=== PATIENT | female | born 1965 | race Caucasian/White ===

== ENCOUNTER → 2018-01-29 11:20 | Outpatient (CLI) | payer OTHER, SELFPAY ==
[2018-01-29 14:40] LABS: AST(SGOT) 19 U/L (15-37); Alanine Aminotransfer ALT/SGPT 32 U/L (13-56); Cholesterol 149 mg/dL (200); High Density Lipoprotein 80 mg/dL; T4 Total, Thyroxin 15.3 ug/dL (4.8-13.9); Thyroid Stim Hormone (TSH) 0.35 uIU/mL (0.358-3.74); Triglycerides 50 mg/dL; Very Low Density Lipoprotein 10 mg/dL (5-40)
== END ==
PROVIDERS: Family Provider Family Medicine; PCP Family Medicine; Visit Provider Family Medicine
DX: E03.9 Hypothyroidism, unspecified (principal); E78.5 Hyperlipidemia, unspecified
CPT/HCPCS: 36415; 80061; 84436; 84443; 84450; 84460

== ENCOUNTER → 2018-01-29 12:06 | Outpatient (CLI) | payer OTHER, SELFPAY ==
[2018-01-31 12:10] LABS: HPV Reflexed? NOT INDICATED
== END ==
PROVIDERS: Family Provider Family Medicine; PCP Family Medicine; Visit Provider Family Medicine
DX: Z12.4 Encounter for screening for malignant neoplasm of cervix (principal)
CPT/HCPCS: 88175; G0145

== ENCOUNTER → 2019-01-24 09:33 | Outpatient (CLI) | payer OTHER, SELFPAY ==
--- NOTE | 2019-01-24 09:36 | BI_ITS ---
MAMMOGRAPHY - BILATERAL SCREENING 3-D TOMOSYNTHESIS REASON FOR EXAM: Female, 53 years old. Bilateral Screening 3-D tomosynthesis PERTINENT HISTORY: Paternal grandmother with breast cancer in her 70s. No symptoms. No problems.. TECHNIQUE: 2-D mammograms and 3-D Tomosynthesis of the breast (s) were performed. CAD was performed. COMPARISON: December 26, 2015. FINDINGS: The breast composition is heterogeneously dense that can obscure small breast masses. There is new, incompletely imaged, flame-shaped asymmetric density within the very deep right lower inner breast. The visualized this region measures approximately 1.9 cm in maximum dimension. This finding is centered approximately 11.5 cm from the nipple base. There is no involvement/superimposed border-forming nodule or mass. There is no associated architectural distortion. The remainder of bilateral breasts appear stable and unremarkable. There are no suspicious clustered microcalcifications. There are no secondary signs of malignancy. BI/SCREENING MAMM (CAD), BILAT IMPRESSION: New asymmetry within the very deep right lower inner breast as described above. Recommend further evaluation with sonographic characterization. ASSESSMENT CATEGORY: BIRADS Category 0: Incomplete. Need additional imaging evaluation as above. A letter regarding these results will be sent to the patient by the facility within 30 days. FOLLOW UP RECOMMENDATION: Ultrasound Recommended. (I) Approximately 10% of breast cancers are not detected by mammography. A normal mammogram should not delay biopsy of a clinically suspicious abnormality. Electronically Signed: Evaristo Sanchez MD at 10:39 EDT , Service support ,
== END ==
PROVIDERS: Family Provider Family Medicine; PCP Family Medicine; Referring Provider Family Medicine; Visit Provider Family Medicine
DX: Z12.31 Encounter for screening mammogram for malignant neoplasm of breast (principal)
CPT/HCPCS: 77063; 77067

== ENCOUNTER → 2019-01-28 15:29 | Outpatient (CLI) | payer OTHER, SELFPAY ==
--- NOTE | 2019-01-28 15:31 | US_ITS ---
STUDY: ULTRASOUND BREAST - RIGHT REASON FOR EXAM: Female, 53 years old. Abnormal screening mammogram. TECHNIQUE: Axial and longitudinal images of the RIGHT breast were performed with a high resolution ultrasound transducer. COMPARISON: Comparison is made with prior mammogram dated January 24, 2019. FINDINGS: RIGHT Breast: The mammographic abnormality corresponds to a 1.6 cm x 1.9 cm by 1.1 cm irregular inhomogeneous hypoechoic nodule at the 7:00 position of the breast at 4 cm from nipple. A biopsy is recommended. US/Breast Limited Unilateral IMPRESSION: 1.6 cm x 1.9 cm x 1.1 cm irregular hypoechoic solid nodule at the 4:00 position of the breast at 7 cm from nipple. A biopsy is recommended. ASSESSMENT CATEGORY: BIRADS Category 4: Suspicious - Biopsy Should Be Considered. A letter regarding these results will be sent to the patient by the facility within 30 days. Electronically Signed: Horacio Stallworth, at 9:42 EDT , Service support ,
== END ==
PROVIDERS: Family Provider Family Medicine; PCP Family Medicine; Referring Provider Family Medicine; Visit Provider Family Medicine
DX: R92.8 Other abnormal and inconclusive findings on diagnostic imaging of breast (principal)
CPT/HCPCS: 76642

== ENCOUNTER → 2019-02-03 15:55 | Outpatient (CLI) | payer OTHER, SELFPAY ==
[2019-02-02 10:38] VITALS: BMI 23.2
--- NOTE | 2019-02-03 | IMM_PTH ---
PATIENT: MARLY LINO LOC: [facility] U#:[id number] AGE/SX: 60/F ROOM: RE02/03/[address]: Dr. Mer Camara MD : 1965 BED: DIS: SPEC #: [id number] RECD: 02/06/19 10:18 STATUS: ENEIDA REQ #: [id number] PRINCE: 02/03/19 00:[address]: Mer Camara DEPT: IMMUNOHISTOCHEMISTRY RECD BY: Beena Chavarria ENTERED: 02/06/19 10:19 SP TYPE: IMMUNO OTHR DR: Dr. Rosie Burciaga MD Tissues: Right breast, NOS Procedures: CALPONIN-1 (add) CK5-6 (add) CK8 (add) E-CAD (add) HER2 ANASTASIA (add) KI-67 (add) P53 (add) WA (add) P40 (add) ER (initial) PHYSICIAN & INSTITUTION [address] [address] SPECIMEN INFORMATION: Tissue Source: Right breast Clinical Info: Right breast mass Specimen Number: [id number] CPT code: 03027, 38082 x6, 02433 x3 METHODOLOGY: Deparaffinized sections of prefer/formalin-fixed tissue or PAP/DQ stained slides are incubated with monoclonal/polyclonal antibodies/oligonucleotide probes. Localization is made via biotin free immunoperoxidase method. Appropriate controls are performed and reacted as expected. Results on target cell population are indicated in the following table: RESULTS: ANTIBODY / CLONE RESULT P53 (DO-7) negative Ki-67 (30-9) positive, moderate CK8 (71zzogZ19) positive CK5-6 (D5 & 1684) negative Calponin-1 (YN061Z) negative P40 (BC28) negative E-Cad (ECH-6) positive MORPHOMETRIC ANALYSIS ER (clone 6F11) 0% WA (clone 16/1E2) 0% Her-2Neu (clone CB11) 3+ The prognostic test for HER2 is performed on formalin-fixed paraffin embedded tissue. A 3+ (positive) staining pattern is defined as intense, homogeneous, complete, circumferential membranous staining in >10% of contiguous tumor cells. A similar weak (2+) staining pattern is interpreted as equivocal. JEREMIAS follow-up testing is recommended for all equivocal cases. Positivity/negativity for ER/WA is reported if > or < 1% of the tumor cells are immuno- reactive, respectively. The ASCO/CAP criteria is used for scoring. Reference: Journal of Clinical Oncology, 2013; 31:5643-5717 & 2010; 16:4968-1302. Duration of fixation: 27.5 Hrs; Sample Adequate: Yes. These assays have not been validated on decalcified tissues. Results should be interpreted with caution given the likelihood of false negativity on decalcified specimens. These tests were developed and their performance characteristics determined by [facility]. They may not have been cleared or approved by the U.S. Food and Drug Administration. The FDA has determined that such clearance or approval is not necessary. INTERPRETATION: Right breast, ultrasound-guided biopsy: Invasive ductal carcinoma, nuclear grade 2/3. Negative for estrogen receptors (unfavorable prognostic indicator). Negative for progesterone receptors (unfavorable prognostic indicator). Positive for overexpression of [id number]. AM:nabor 02/09/19
--- NOTE | 2019-02-03 15:55 | BRBX_PTH ---
PATIENT: MARLY LINO LOC: [facility] U#:[id number] AGE/SX: 60/F ROOM: RE02/03/[address]: Dr. Mer Camara MD : 1965 BED: DIS: SPEC #: [id number] RECD: 02/04/19 16:13 STATUS: ENEIDA REQ #: [id number] PRINCE: 02/03/19 15:[address]: Mer Camara DEPT: SURGICAL PATHOLOGY RECD BY: Jamshid Rice ENTERED: 02/05/19 10:50 SP TYPE: BREAST BX OTHR DR: Dr. Rosie Burciaga MD Tissues: Right breast, NOS Procedures: Surgery Specimen Level IV HEADER OPERATION: Ultrasound-guided right breast biopsy PRE-OP DIAGNOSIS: Right breast mass TISSUE SUBMITTED: Right breast ISCHEMIC TIME: 1 minute FIXATION TIME: 27.5 hours MICROSCOPIC DIAGNOSIS Right breast mass, ultrasound-guided core biopsy: Invasive ductal carcinoma with the following characteristics: Maximal length - 8 mm Nuclear grade - 2/3 AM:nabor 02/06/19 COMMENT ER/WV/Xsr0gqc studies are being performed on sections of tumor and the results from this study will be reported separately ([id number]). MICROSCOPIC DESCRIPTION Slides are reviewed. GROSS DESCRIPTION Received in fixative is one container labeled with the patient's name and designated right breast biopsy. The specimen consists of multiple irregular fragments of yellow-monahan soft tissue that in aggregate measure 1 x 0.2 x 0.1 cm. The specimen is totally submitted in one cassette. / AM:nabor 02/05/19 TC:0 CPT: 73619
== END ==
PROVIDERS: Family Provider Family Medicine; PCP Family Medicine; Referring Provider Surgery; Visit Provider Surgery
DX: N63.10 Unspecified lump in the right breast, unspecified quadrant (principal)
CPT/HCPCS: 88305; 88341; 88342

== ENCOUNTER → 2019-02-26 | Outpatient (CLI) | payer OTHER, SELFPAY ==
[2019-02-19 13:32] VITALS: BMI 23.2
--- NOTE | 2019-02-26 09:33 | MRI_ITS ---
STUDY: BILATERAL BREAST MR WITHOUT AND WITH CONTRAST REASON FOR EXAM: Female, 53 years old. New diagnosed right breast cancer. TECHNIQUE: Multi-sequence multi-echo imaging of both breasts was performed with a dedicated breast coil. T1-weighted and T2-weighted images were performed before the administration of contrast. T1-weighted images were also performed after the administration of 14 IV Dotarem without complications. COMPARISON: Screening mammogram dated January 24, 2019, right unilateral diagnostic mammogram dated January 28, 2019 and right breast ultrasound dated January 28, 2019 FINDINGS: RIGHT BREAST: The breast tissue is fatty with minimal background enhancement. In the lower inner quadrant of the right breast approximately 6.7 cm behind the nipple and 2.2 cm below the nipple, there is an irregular heterogeneously enhancing mass measuring 3.5 cm x 2 cm x 1.5 cm. There is a tissue clip marker in the central portion of the mass. This mass corresponds to the mass seen on ultrasound and the mass that was biopsied February 04, 2019. LEFT BREAST: The breast tissue is fatty with minimal background enhancement. There are no abnormal enhancing masses or areas of non-mass enhancement in the left breast. There are no enlarged or abnormal lymph nodes. There is no abnormality in the visualized regions of the chest or liver. MRI/Breast Bilateral W/O and W IMPRESSION: 3.5 cm x 2 cm x 1.5 cm heterogeneously enhancing mass in the right breast corresponding to the mass biopsied February 04, 2019. This represents the index lesion. No other abnormality is present. CATEGORY: BIRADS Category 6: Known Biopsy-Proven Malignancy - Appropriate Action Should Be Taken. A letter regarding these results will be sent to the patient by the facility within 30 days. Electronically Signed: Esvin Wise MD at 16:48 EDT , Service support ,
== END | disposition home or self-care (01) ==
PROVIDERS: Family Provider Family Medicine; PCP Family Medicine; Referring Provider Surgery; Visit Provider Surgery
DX: C50.911 Malignant neoplasm of unspecified site of right female breast (principal)
CPT/HCPCS: 77049; A9575; A4216; C8908

== ENCOUNTER → 2019-03-05 14:58 | Outpatient (CLI) | payer OTHER, SELFPAY ==
[2019-03-02 10:16] VITALS: BMI 23.7
--- NOTE | 2019-03-05 14:59 | ECHOCSONC_ITS ---
Reason For Study: Pre infusion high risk meds Procedure This was a 2D Doppler, Color Flow transthoracic echocardiogram. Myocardial strain analysis was performed in this exam to aid in the assessment of cardiac function. Exam performed in department. Left Ventricle Normal LV size. The estimated ejection fraction is 45-50 %. Stage 1 diastolic dysfunction. Hypokinesis of the lateral wall and septum. Right Ventricle Normal RV size. Normal systolic function. Atria Normal left atrium. Normal right atrium. No doppler evidence for ASD. Mitral Valve There is no mitral valve stenosis. Trivial mitral valve insufficiency. Tricuspid Valve There is no tricuspid stenosis. Trivial tricuspid valve insufficiency. Pulmonary artery systolic pressure is 25 mmHg. Aortic Valve Trisinus/trileaflet aortic valve. There is no aortic stenosis. No aortic valve insufficiency. Pulmonic Valve There is no pulmonic valvular stenosis. No pulmonic valve insufficiency. Great Vessels Normal aortic root. Pericardium/Pleural No pericardial effusion. MMode/2D Measurements & Calculations LVIDd: 5.0 cm IVSd: 0.96 cm Ao root diam: 3.2 cm LVIDs: 3.7 cm LVPWd: 0.96 cm RVDd: 2.5 cm FS: 26.5 % LAV(MOD-bp): 42.2 ml LA A4 area: 13.4 cm2 LA dimension(2D): 3.1 cm LAV(MOD-bp) Indexed: 24.2 ml/m2 LAV(MOD-sp2): 42.2 ml LAV(MOD-sp4): 34.8 ml RA A4 area: 9.7 cm2 Time Measurements MV dec time: 0.19 sec Doppler Measurements & Calculations MV E max ky: 60.5 cm/sec Lat Peak E' Ky: 7.9 cm/sec Med Peak E' Ky: 4.6 cm/sec MV A max ky: 79.3 cm/sec E/E' lat: 7.6 E/E' med: 13.2 MV E/A: 0.76 Ao V2 max: 115.1 cm/sec LV V1 max: 80.8 cm/sec PA V2 max: 61.4 cm/sec Ao max P.3 mmHg LV V1 max P.6 mmHg TR max ky: 224.1 cm/sec TR max P.1 mmHg Interpretation Summary Stage 1 diastolic dysfunction. Hypokinesis of the lateral wall and septum Pulmonary artery systolic pressure is 25 mmHg. The estimated ejection fraction is 45-50 %. Trivial mitral valve insufficiency. Ordering Physician: Wei Bravo Referring Physician: Rosie Burciaga Performed By: Caitlin Malcolm, RENATO, RVT
== END ==
PROVIDERS: Family Provider Family Medicine; PCP Family Medicine; Referring Provider Internal Medicine Hematology & Oncology; Visit Provider Internal Medicine Hematology & Oncology
DX: Z01.818 Encounter for other preprocedural examination (principal); C50.911 Malignant neoplasm of unspecified site of right female breast
CPT/HCPCS: 0399T; 93306

== ENCOUNTER 2019-03-16 08:09 | Day surgery (SDC) | payer OTHER, SELFPAY ==
--- NOTE | 2019-02-20 09:36 | HP_ITS ---
Intake Vital Signs 02/19/19 Body Mass Index (BMI) 23.2 02/19/19 Height 5 ft 6 in 02/19/19 Weight: 143 lb 02/19/19 Body Mass Index (BMI) 23.1 02/19/19 Blood Pressure 137/82 H 02/19/19 Blood Pressure Location Rt brachial 02/19/19 Blood Pressure Position Sitting 02/19/19 Respiratory Rate 14 02/19/19 Pulse Rate 90 02/19/19 Pulse Source Monitor 02/19/19 Temperature 98.2 F 02/19/19 Temperature Source Oral 02/19/19 Pulse Ox 100 02/19/19 Oxygen Delivery Method room air Intake Visit Reasons: f/u breast biopsy/discuss surgery Mophead Trimmer And Wrapper Required: No Is patient in pain?: No Allergies No Known Allergies Allergy (Verified 02/19/19 13:32) Medications atorvastatin 10 mg tablet 10 mg PO DAILY 02/02/19 [History Confirmed 02/19/19] levothyroxine 112 mcg tablet 112 mcg PO DAILY 02/02/19 [History Confirmed 02/19/19] PFSH Medical History Abnormal mammogram of right breast (Acute) Abnormal ultrasound of breast (Acute) Thyroid disease (Acute) Surgical History Hx of right breast biopsy (Acute) Family History Mother Hypertension High cholesterol Skin cancer Thyroid disorder Father Heart disease High cholesterol Hypertension Thyroid disorder Sister High cholesterol Social History Smoking Status: Never smoker second hand exposure: No alcohol intake: current alcohol intake frequency: a few times a month substance use type: does not use caffeine: Yes (occasionally) what type of physical activity do you participate in: walking, weight training frequency: 3-4 times per week HPI HPI HPI: MARLY LINO, is a 53 F who presents to the office today for HPI HPI Surgical H&P: Yes HPI: MARLY LINO, is a 53 F who presents to the office today for discussion of right breast biopsy results. Patient's biopsy showed invasive ductal carcinoma. ER MS negative, HER-2/meliton positive. Patient denies much bruising after the biopsy and denies any pain at the site. Patient's grandmother may have had breast cancer in her 70s but she did get have colon cancer before the breast cancer, otherwise no family history. Exam Const General: cooperative, comfortable, no acute distress Chest Other: Right breast: 2 x 1 cm mobile mass medially at 4:00 about 7 cm from the nipple, biopsy site incision healing well, no ecchymosis or signs of infection. No right axillary lymphadenopathy on exam. Resp Effort & Inspection: normal respiratory effort Cardio Rate: regular rate Assessment & Plan Problems 1. Invasive ductal carcinoma of right breast C50.911 2. 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 Encounter for adjustment or management of vascular access device Z45.2 Plan Discussed pathology report with the patient as well as her tumor marker status. Discussed with patient that due to her ER MS and negative and HER-2 positive markers would recommend patient see oncology for neoadjuvant therapy as there is a newer neoadjuvant therapy for HER-2 positive breast cancers. We will also plan on patient getting an MRI of the breast which also evaluate patient's axilla on exam I do not feel any lymphadenopathy. Discussed with patient that if there is anything seen in her axilla would need further ultrasound of the biopsy prior to beginning treatment. Also discussed with patient plan for genetic testing as it may help guide her with her possible surgical options in the future once no adjuvant treatment has been completed. Did also briefly discussed patient options for surgery including breast conserving therapy, mastectomy, mastectomy with reconstruction, bilateral mastectomy did discuss that there is no survival benefit over the breast conserving therapy versus mastectomy. And also discussed that bilateral mastectomies would not offer survival benefit unless she had a genetic mutation and would double the risk of complications. We will plan to discuss further treatment therapies or options once she has completed neoadjuvant therapy. A lymph node biopsy would be necessary before treatment if there is any abnormal nodes on imaging. And we would plan for at least a sentinel node possibly actually no dissection if needed for definitive treatment. Also discussed with patient the procedure of her left possible right IJ port placement for her chemotherapy. I have discussed above with the patient- Port-a-Cath placement. Patient has been counseled as to the risks/benefits of the procedure. I have explained the risks of the surgery, including but not limited to: infection, bleeding, injury to any blood vessels/nerves, injury to lungs (such as pneumothorax or hemothorax and need for chest tube), not having any access, nonfunctioning of port due to thrombosis, infection of port, etc. the patient understands and agrees to proceed. I have answered all the patient's questions to the patient?s satisfaction and the patient has no further questions. Greater than 50% of direct patient contact was spent in counseling or coordination of care. I spent 40 minutes counseling the patient and coordinating care. Mer Camara M.D. Pager: [phone] [facility] [address] [place] [address], [address] [place] [id number] Office: [phone] Orders Orders: Breast Bilateral W/O and W 02/19/19 C50.911 Referrals: Genetic Referral C50.911 Oncology C50.911 Plan Detail Follow Up Patient will see oncology and get her breast MRI and will see and schedule for port placement. 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
[2019-03-02 10:16] VITALS: BMI 23.7
[2019-03-16] VITALS (7 sets, daily range): BP systolic 110–162; BP diastolic 70–96; PULSE 74–95; RESP 16–18; TEMP 36.9; O2SAT 94–98; BMI 23.9
[2019-03-16] MEDS: Bupivacaine Mpf 0.5% 30 ML VIAL (10:23)
[2019-03-16] MEDS: Cefazolin 2 GM in 0.9% Normal Saline 100 ML IV (10:23)
--- NOTE | 2019-03-16 11:08 | RAD_ITS ---
STUDY: X-RAY CHEST REASON FOR EXAM: Female, 53 years old. Port placement verification. TECHNIQUE: Single frontal view of the chest. COMPARISON: None. FINDINGS: Left internal jugular catheter has been placed with tip projected into the mid-SVC. The lungs are mildly hyperexpanded. There is no demonstrated pleural abnormality. Normal size heart. Normal mediastinum and polo. Normal visualized pulmonary arteries. Normal visualized aortic arch and descending thoracic aorta. Normal visualized thoracic spine. Normal visualized ribs, clavicles, and shoulders. There is no demonstrated abnormality of the visualized soft tissue structures of the upper abdomen. RAD/CXR for Line Placement IMPRESSION: Placement of left internal jugular catheter without complications. Electronically Signed: Esvin Wise MD at 11:53 EDT , Service support ,
--- NOTE | 2019-03-16 11:08 | PCM.OPRPT ---
Report of Operation Date of Procedure: 03/16/19 Pre-Operative Diagnosis: z45.2, right breast cancer Post-Operative Diagnosis: Same Surgery/Procedure Performed:: 1. Insertion of left IJ port. 2. Use of ultrasound. 3. Use of fluoroscopy Type of Anesthesia:: MAC/Supplemental Anesthesiologist: Oskar Wynne Special Medications: Ancef 2 g IV x1 Specimen's removed: None Estimated Blood Loss (mL): < 10 cc Fluids Replaced: 500 cc Description of Procedure: After informed consent was given, the patient was brought to the operating room and placed in the supine position. Appropriate time out protocol was followed. He was then given IV conscious sedation for anesthesia. The patient's bilateral upper chest and neck were then prepped with a surgical skin preparation and sterile surgical drapes were placed. After proper landmarks were ascertained, the skin at the upper left chest area was then infiltrated with 1:1 mixture of 1% lidocaine with epinephrine and 0.5% maricaine. A needle trocar was then inserted into the left internal jugular vein with ultrasound guidance-multiple vessels were viewed with u/s and the left IJ was chosen-- and there was good aspiration of venous blood. A wire was then threaded into the needle trocar and this was visualized under fluoroscopy to ensure that the wire was in the superior vena cava. Once this was done, then the needle trocar was removed. A small skin tricia was made with an 11 blade knife at the wire entrance site. The dilator with the introducer sheath attached was then placed over the wire into the left internal jugular vein via the Seldinger technique and this was visualized under fluoroscopy; however it did not appear to turn down towards the heart. Though wire was changed out for angle wide wire which was inserted under fluoroscopy and did enter the superior vena cava without any issues. The dilator and sheath were in proper position as visualized by fluoroscopy. A subcutaneous pocket was then created caudad to the catheter insertion site. A transverse skin incision was made after the skin and subcutaneous tissues were infiltrated with local anesthetic. Blunt dissection was then used to create a space large enough for placement of the subcutaneous port. The catheter was then tunneled into the subcutaneous pocket. The wire and dilator were then removed. The catheter was then threaded into the introducer sheath and was positioned with its tip at the junction of the superior vena cava and the right atrium as visualized under fluoroscopy. The excess catheter was transected. The catheter was then attached to the subcutaneous port using manufacturers guidelines. The catheter was flushed with a heparin saline mixture prior to placement. Hemostasis was carefully controlled with electrocautery. The port was sutured to the subcutaneous fascia using 2-0 Vicryl suture at two sites. The port was then placed in the subcutaneous pocket and the sutures were ligated. The incision were reapproximated with interrupted subdermal 3-0 vicryl sutures. The skin was reapproximated with 3-0 nylon suture in a interrupted fashion. Steristrips were used for reinforcement of the skin closure at IJ insertion site and a sterile opsite dressings were applied. The patient tolerated the procedure well. Implants Used: Bard PowerPort isp M.R.I. 6Fr Lot [id number], ref [id number] Grafts/Implants Used: [employer] PowerPort isp M.R.I. 6Fr Lot [id number], ref [id number] - Complications none
--- NOTE | 2019-03-16 11:13 | DCINST_ITS ---
Discharge Diet: No Restrictions May shower in (days): 1 - Keep port site clean and dry for 5 days okay to keep original dressing on for 2 to 3 days. Lifting Restrictions: No lifting greater than 15 pounds with the left arm x1 week Call your doctor if your incision/area has: Continuous Slow Oozing, Sudden Increased Bleeding, Increased Pain/ Swelling, Increased Redness, Foul Smelling Discharge, Swelling at the incision site Call your doctor if you observe: Fever of 101 or Higher Remove Dressing in (days):: 1 - Okay to remove the neck OpSite tomorrow or later today. Okay to keep the port site OpSite on for 2 to 3 days. Keep the port site clean dry for 5 days. Allergies/Adverse Reactions: Allergies No Known Allergies Allergy (Verified 03/16/19 08:36) Medications to take at Discharge atorvastatin 10 mg tablet 10 mg PO DAILY 02/02/19 levothyroxine 112 mcg tablet 112 mcg PO DAILY 02/02/19 Primary Care Physician: Rosie Burciaga MD [Primary Care Provider] - Test Results: Test results from this visit will be discussed in further detail at your follow- up appointment, if applicable. Please Follow Up With: Mer Camara MD - After 5 PM and on the weekends call [phone] with any concerns. When: Call the office for follow-up appointment in 10 days for suture removal. Proposed Discharge Date: 03/16/19
== END 2019-03-16 12:04 | disposition home or self-care (01) ==
LOC: SDC 08:13 → AC 08:14
PROVIDERS: Family Provider Family Medicine; PCP Family Medicine; Referring Provider Surgery; Visit Provider Surgery
PROC: (CPT 36561; principal; 2019-03-16 10:00)
DX: Z45.2 Encounter for adjustment and management of vascular access device (principal); C50.911 Malignant neoplasm of unspecified site of right female breast; Z17.1 Estrogen receptor negative status [ER-]
CPT/HCPCS: 36561; 71045; 77001; J7120; C1769; J2405

== ENCOUNTER → 2019-03-17 10:49 | Outpatient (CLI) | payer OTHER, SELFPAY ==
[2019-03-02 10:16] VITALS: BMI 23.7
[2019-03-16 08:46] VITALS: BMI 23.9
--- NOTE | 2019-03-17 10:56 | NM_ITS ---
CLINICAL: 53-year-old female presenting for evaluation of presystemic-cytotoxic therapy, resting left ventricular myocardial systolic function. RESTING RADIONUCLIDE VENTRICULOGRAPHY COMPARISON: Resting echocardiography report 03/05/2019 FINDINGS: Following the intravenous administration of 25.8 mCi of 99m Tc Ultratag RBCs, the resting labeled blood pool radionuclide ventriculogram reveals: 1. The left ventricular ejection fraction was calculated to be 43.0 % by equilibrium technique. 2. Mild diffuse global left ventricular hypokinesis is defined. NM/MUGA Rest or Stress - Multi IMPRESSION: 1. ABNORMAL resting labeled blood pool radionuclide ventriculography. A. There is scintigraphic evidence of resting left ventricular systolic dysfunction with corresponding wall motion abnormalities.. Electronically Signed: Vinay Harrison DO at 14:33 EDT Tel , Service support ,
== END ==
PROVIDERS: Family Provider Family Medicine; PCP Family Medicine; Referring Provider Internal Medicine Hematology & Oncology; Visit Provider Internal Medicine Hematology & Oncology
DX: R93.1 Abnormal findings on diagnostic imaging of heart and coronary circulation (principal); C50.911 Malignant neoplasm of unspecified site of right female breast
CPT/HCPCS: 78473; A9560

== ENCOUNTER → 2019-04-20 08:00 | Outpatient (CLI) | payer OTHER, SELFPAY ==
[2019-03-18 09:03] VITALS: BMI 24.2
[2019-04-09 08:34] VITALS: BMI 23.4
--- NOTE | 2019-04-20 08:02 | ECHODONC_ITS ---
Reason For Study: HTN Procedure This was a 2D Doppler, Color Flow transthoracic echocardiogram. Myocardial strain analysis was performed in this exam to aid in the assessment of cardiac function. Exam performed in department. Left Ventricle Normal LV size. The estimated ejection fraction is 43 %. Stage 2 diastolic dysfunction. No regional wall motion abnormalities noted. Right Ventricle Normal RV size. Normal systolic function. Atria Normal left atrium. Normal right atrium. Hypermobile atrial septum. Mitral Valve Normal mitral valve. Tricuspid Valve Normal tricuspid valve. Mild (1+) tricuspid valve insufficiency. Pulmonary artery systolic pressure is 30 mmHg. Aortic Valve Normal aortic valve. Pulmonic Valve Normal pulmonic valve. Great Vessels Normal aortic root. The pulmonary artery is normal size. Normal inferior vena cava. Pericardium/Pleural No pericardial effusion. MMode/2D Measurements & Calculations LVIDd: 5.0 cm IVSd: 0.94 cm Ao root diam: 3.3 cm LVIDs: 3.7 cm LVPWd: 0.94 cm RVDd: 3.1 cm FS: 24.6 % LAV(MOD-bp): 34.7 ml LA A4 area: 12.3 cm2 LA dimension(2D): 2.9 cm LAV(MOD-bp) Indexed: 20.0 ml/m2 LAV(MOD-sp2): 31.1 ml LAV(MOD-sp4): 30.2 ml RA A4 area: 11.9 cm2 Doppler Measurements & Calculations MV E max ky: 73.1 cm/sec Lat Peak E' Ky: 8.8 cm/sec Med Peak E' Ky: 6.6 cm/sec MV A max ky: 58.0 cm/sec E/E' lat: 8.3 E/E' med: 11.0 MV E/A: 1.3 Ao V2 max: 104.8 cm/sec LV V1 max: 82.7 cm/sec PA V2 max: 67.2 cm/sec Ao max P.4 mmHg LV V1 max P.7 mmHg TR max ky: 253.5 cm/sec TR max P.0 mmHg Interpretation Summary Hypermobile atrial septum. Normal LV size. The estimated ejection fraction is 43 %. Stage 2 diastolic dysfunction. Mild (1+) tricuspid valve insufficiency. The prior GLS was 13.6 The global longitudinal strain = -12% (abnormal). Ordering Physician: Russell Lentz Referring Physician: Rosie Burciaga Performed By: Caitlin Malcolm RDCS, RVT
== END ==
PROVIDERS: Family Provider Family Medicine; PCP Family Medicine; Referring Provider Internal Medicine Cardiovascular Disease; Visit Provider Internal Medicine Cardiovascular Disease
DX: I10 Essential (primary) hypertension (principal); I43 Cardiomyopathy in diseases classified elsewhere
CPT/HCPCS: 0399T; 93306

== ENCOUNTER → 2019-06-25 07:58 | Outpatient (CLI) | payer OTHER, SELFPAY ==
[2019-06-11 08:50] VITALS: BMI 23.6
[2019-06-23 09:09] VITALS: BMI 23.2
--- NOTE | 2019-06-25 08:24 | ECHOLONC_ITS ---
Reason For Study: CMP, RT BREAST CANCER, antineoplastic chemo. Procedure This was a limited 2D transthoracic echocardiogram. Myocardial strain analysis was performed in this exam to aid in the assessment of cardiac function. Exam performed in department. Left Ventricle Normal LV size. The estimated ejection fraction is 45 %. No regional wall motion abnormalities noted. There is mild global hypokinesis of the left ventricle. Right Ventricle Normal RV size. Normal systolic function. Atria Normal left atrium. Normal right atrium. Mitral Valve Normal mitral valve. Tricuspid Valve Normal tricuspid valve. Aortic Valve Trisinus/trileaflet aortic valve. Pulmonic Valve Normal pulmonic valve. Great Vessels Normal aortic root. The pulmonary artery is normal size. Normal inferior vena cava. Pericardium/Pleural No pericardial effusion. MMode/2D Measurements & Calculations LVIDd: 4.9 cm IVSd: 1.0 cm Ao root diam: 3.3 cm LVIDs: 3.2 cm LVPWd: 0.96 cm RVDd: 2.5 cm FS: 34.4 % LAV(MOD-bp): 47.3 ml LA A4 area: 14.5 cm2 LA dimension(2D): 2.8 cm LAV(MOD-bp) Indexed: 27.2 ml/m2 LAV(MOD-sp2): 41.0 ml LAV(MOD-sp4): 43.0 ml RA A4 area: 10.1 cm2 Interpretation Summary Normal LV size. The estimated ejection fraction is 45 %. There is mild global hypokinesis of the left ventricle. The GLS is essentially unchanged from the echo in March 2019 The global longitudinal strain = -12.3% (abnormal). Compared to previous study, the left ventricular systolic function is the same.. Ordering Physician: Wei Bravo Referring Physician: Rosie Burciaga Performed By: Caitlin Malcolm RDCS, RVT
== END ==
PROVIDERS: Family Provider Family Medicine; PCP Family Medicine; Referring Provider Internal Medicine Hematology & Oncology; Visit Provider Internal Medicine Hematology & Oncology
DX: C50.911 Malignant neoplasm of unspecified site of right female breast (principal); I42.8 Other cardiomyopathies; I51.89 Other ill-defined heart diseases
CPT/HCPCS: 0399T; 93308

== ENCOUNTER → 2019-07-20 14:58 | Outpatient (CLI) | payer OTHER, SELFPAY ==
[2019-07-20 11:11] VITALS: BMI 23.3
== END ==
PROVIDERS: Family Provider Family Medicine; PCP Family Medicine; Referring Provider Surgery; Visit Provider Surgery
DX: L03.011 Cellulitis of right finger (principal)
CPT/HCPCS: 87070; 87077; 87205

== ENCOUNTER → 2019-07-23 13:09 | Outpatient (CLI) | payer OTHER, SELFPAY ==
[2019-07-02 08:42] VITALS: BMI 23.6
[2019-07-20 11:11] VITALS: BMI 23.3
--- NOTE | 2019-07-23 13:19 | MRI_ITS ---
STUDY: BILATERAL BREAST MR WITHOUT AND WITH CONTRAST REASON FOR EXAM: Female, 54 years old. Right breast cancer status post chemotherapy which ended July 02, 2019. TECHNIQUE: Multi-sequence multi-echo imaging of both breasts was performed with a dedicated breast coil. T1-weighted and T2-weighted images were performed before the administration of contrast. T1-weighted images were also performed after the administration of IV Dotarem 13 without complications. COMPARISON: Prior breast MR study with contrast February 26, 2019. FINDINGS: RIGHT BREAST: The breast tissue is scattered fibroglandular densities with no background enhancement. The mass on the prior study has resolved. There are no abnormal enhancing masses or areas of non-mass enhancement in the right breast. LEFT BREAST: The breast tissue is scattered fibroglandular densities with no background enhancement. There are no abnormal enhancing masses or areas of non-mass enhancement in the left breast. There are no enlarged or abnormal lymph nodes. There is no abnormality in the visualized regions of the chest or liver. MRI/Breast Bilateral W/O and W IMPRESSION: Complete resolution of previously described right breast mass compared to the February 26, 2019 study. No other abnormality. CATEGORY: BIRADS Category 6: Known Biopsy-Proven Malignancy - Appropriate Action Should Be Taken. A letter regarding these results will be sent to the patient by the facility within 30 days. Electronically Signed: Esvin Wise MD at 10:53 EDT , Service support ,
== END ==
PROVIDERS: Family Provider Family Medicine; PCP Family Medicine; Referring Provider Internal Medicine Hematology & Oncology; Visit Provider Internal Medicine Hematology & Oncology
DX: Z01.818 Encounter for other preprocedural examination (principal); C50.911 Malignant neoplasm of unspecified site of right female breast
CPT/HCPCS: 77049; A9575; A4216; C8908

== ENCOUNTER → 2019-08-05 14:37 | Outpatient (CLI) | payer OTHER, SELFPAY ==
[2019-08-05 13:56] VITALS: BMI 23.3
--- NOTE | 2019-08-05 14:40 | BI_ITS ---
MAMMOGRAPHY - UNILATERAL DIAGNOSTIC: RIGHT BREAST REASON FOR EXAM: Female, 54 years old. Localization of right postbiopsy clip placement. PERTINENT HISTORY: Personal history of breast cancer. Post chemotherapy follow-up. Planning for lumpectomy. TECHNIQUE: Digital unilateral breast meri (3D mammographic acquisition) in the CC and MLO projections. 2-D mediolateral oblique (MLO) and craniocaudad (CC) views of both breasts were obtained. CAD: Full Field Digital Mammography with Computer Added Detection was performed. COMPARISON: Comparison is made with prior mammogram dated January 24, 2019. FINDINGS: Breast Composition: The breasts are heterogeneously dense, which may obscure small masses. A tissue clip marker is seen in the deep inferior medial aspect of the right breast. The previously seen mass density at that site as almost completely resolved. No other significant abnormalities are identified. BI/DIAG MAMM W/CAD, UNILAT IMPRESSION: Status post chemotherapy. Tissue clip marker is seen in the deep medial inferior aspect of the right breast. The underlying mass lesion as almost completely resolved. ASSESSMENT CATEGORY: BIRADS Category 6: Known Biopsy-Proven Malignancy - Appropriate Action Should Be Taken. A letter regarding these results will be sent to the patient by the facility within 30 days. Approximately 10% of breast cancers are not detected by mammography. A normal mammogram should not delay biopsy of a clinically suspicious abnormality. Electronically Signed: Horacio Stallworth, at 9:13 EST , Service support ,
== END ==
PROVIDERS: Family Provider Family Medicine; PCP Family Medicine; Referring Provider Surgery; Visit Provider Surgery
DX: C50.911 Malignant neoplasm of unspecified site of right female breast (principal); Z98.890 Other specified postprocedural states
CPT/HCPCS: 77065

== ENCOUNTER 2019-08-26 07:49 | Day surgery (SDC) | payer OTHER, SELFPAY ==
[2019-08-05 13:56] VITALS: BMI 23.3
--- NOTE | 2019-08-06 07:56 | HP_ITS ---
Intake Vital Signs 08/05/19 Body Mass Index (BMI) 23.3 Intake Visit Reasons: MRI Results 07/23 Chief Complaint: discuss MRI Lab Aid Required: No Is patient in pain?: No Allergies No Known Allergies Allergy (Verified 07/20/19 11:49) Medications atorvastatin 10 mg tablet 10 mg PO DAILY 02/02/19 [History Confirmed 08/05/19] levothyroxine 112 mcg tablet 112 mcg PO DAILY 02/02/19 [History Confirmed 08/05/19] Lidocaine/Prilocaine [Lidocaine-Prilocaine Cream] 1 applicatio TP DAILY PRN PRN 30 Days #1 tube 03/18/19 [Rx Confirmed 08/05/19] Ondansetron [Ondansetron Odt] 8 mg PO Q8H PRN PRN 10 Days #30 tab.rapdis 03/18/19 [Rx Confirmed 08/05/19] Prochlorperazine Maleate 10 mg PO Q6H PRN PRN 10 Days #30 tab 03/18/19 [Rx Confirmed 08/05/19] losartan 50 mg tablet 50 mg PO DAILY #90 tab 03/18/19 [Rx Confirmed 08/05/19] Magic Mouth Wash 10 ml PO Q6H PRN PRN 7 Days #300 ml 03/23/19 [Rx Confirmed 08/05/19] Lansoprazole [Prevacid] 30 mg PO DAILY 30 Days #30 cap 03/31/19 [Rx Confirmed 08/05/19] Is last menstrual period known: No Post menopausal: Yes Patient : No PFSH Medical History Diastolic dysfunction (Chronic) Nonischemic cardiomyopathy (Chronic) Hyperlipidemia (Chronic) Essential (primary) hypertension (Chronic) Cancer of right female breast (Chronic) Hypothyroidism (Chronic) Postmenopausal (Chronic) Hematuria (Resolved) Surgical History port placement (Resolved) Family History Mother Skin cancer High cholesterol Hypertension Thyroid disorder Father High cholesterol Heart disease Hypertension Thyroid disorder Myocardial infarction Age 55 CAD (coronary artery disease) PCI Sister No problems noted. Grandmother Colon cancer Aunt Brain cancer Social History (Updated 08/06/19 @ 07:56 by Mer Camara MD) Smoking Status: Never smoker second hand exposure: No alcohol intake: current alcohol intake frequency: a few times a month substance use type: does not use caffeine: Yes (occasionally) what type of physical activity do you participate in: walking, weight training frequency: 3-4 times per week HPI HPI HPI: MARLY LINO, is a 54 F who presents to the office today for HPI HPI Surgical H&P: Yes HPI: MARLY LINO, is a 54 F who presents to the office today for follow-up status post neoadjuvant chemotherapy due to right ER [place] negative, 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 Patient did have a repeat MRI which showed complete resolution of the previous mass. Patient states her paronychia has healed and she has had no further drainage. Patient did complete chemotherapy on 07/02/2019. Patient presents with her to discuss breast surgery options. Patient's genetics were negative for BRCA1 or 2. ROS General General: Yes breast cancer; no fatigue Breast Breast: No left breast lump, right breast lump, nipple discharge or breast pain Exam Const General: cooperative, comfortable, no acute distress Chest Breast inspection: normal inspection of the breasts, normal inspection of the axillae Breast Palpation: No nipple discharge Other: Right breast: No mass appreciated, no change the overlying skin, no adenopathy. GI Inspection: non-distended Palpation: soft, no guarding, hernia (Umbilical), nontender Assessment & Plan Problems 1. Cancer of right female breast C50.911 Invasive ductal carcinoma 2. HER2-positive carcinoma of right breast C50.911 Plan I have given the patient options for initial surgical treatment. Patient is status post neoadjuvant chemotherapy due to ER [place] negative and HER-2 positive. Patient's MRI does appear to have a complete response. Options are the following: lumpectomy followed by radiation therapy vs. mastectomy vs. mastectomy followed by immediate reconstruction. I have described the procedures to the patient. I have described the advantages and disadvantages of the options, but I have told the patient that among the options, the survival rate for breast cancer is the same. I have told the patient that with all the surgeries that a sentinel lymph node biopsy is required. I have described the procedure of sentinel lymph node biopsy to the patient. I have told the patient that if the biopsy is positive for metastatic disease, then a full axillary lymph node dissection is required. I have told the patient that adjuvant chemotherapy will be required should the lymph nodes reveal metastatic disease. Also, a full lymph node dissection will increase the risk for lymphedema, especially if there needs to have radiation to the axilla. I have told the patient the risks of surgery, including but not limited to: infection, bleeding, scar tissue, seroma and persistent seroma, lymph leak, injury to any blood vessels, injury to any nerves (particularly the long thoracic, the thoracodorsal, and the second intercostal brachial and the resultant sequelae), lymphedema, cosmetic deformity, dysesthesias, wound infections, further surgery (especially if margins are not clear), complications of anesthesia, etc. the patient understands. The patient will think about the options and discuss it further with her . The patient will contact me after seeing radiation oncology when she decides what she wishes to do. Will refer patient to radiation oncology to further assist in her decision- making. Did offer patient a meeting with plastic surgery currently patient is thinking more of a lumpectomy and not reconstruction, she will let us know if she changed her mind after she talks with radiation oncology. I have answered all the patient?s questions at this point to her satisfaction and she has no further questions. Greater than 50% of direct patient contact was spent in counseling or coordination of care. I spent 40 minutes counseling the patient and coordinating care. Mer Camara M.D. Pager: [phone] [facility] [address] [place] [address], [address] [place] [address] Office: [phone] Orders Orders: DIAG MAMM W/CAD, UNILAT 08/05/19 C50.911, [id number] Referrals: Oncology C50.911 Plan Detail Follow Up Patient will contact us to let us know what she decides for surgery Coding Level of Care Code Off vis,est,level 5 Diagnoses Cancer of right female breast C50.911 ??Estrogen receptor status: negative HER2-positive carcinoma of right breast C50.911 08/06/19 0756 <Electronically signed by Mer Saini am, MD> Date _ Mer Camara MD I have examined the patient the following changes are noted: Patient did contact us let her know that she was interested in getting right lumpectomy and sentinel node biopsy, possible axillary lymph node dissection. We will plan for needle localization of the right breast clip as she had resolution of the mass per MRI. Patient no further questions this time.
[2019-08-06 13:05] VITALS: BMI 23.0
--- NOTE | 2019-08-26 | IMM_PTH ---
PATIENT: MARLY LINO [place] [facility] [place][id number] AGE/SX: 54/F ROOM: RE08/26/[address]: Dr. Mer Camara MD : 1965 BED: DIS: 08/26/2019 SPEC #: [id number] RECD: 08/28/19 12:34 STATUS: ENEIDA REQ #: [id number] PRINCE: 08/26/19 00:[address]: Mer Camara DEPT: IMMUNOHISTOCHEMISTRY RECD BY: Beena Chavarria ENTERED: 08/28/19 12:37 SP TYPE: IMMUNO OTHR DR: Dr. Rosie Burciaga MD Tissues: A - Axillary lymph node, NOS B - Axillary lymph node, NOS Procedures: CK7 (add) Pankeratin (initial) PHYSICIAN & INSTITUTION [place] [address] SPECIMEN INFORMATION: Tissue Source: A - [place] lymph node, B - Additional sentinel lymph node Clinical Info: Right breast cancer Specimen Number: [id number] A & B CPT code: 90656 x2, 57846 x2 METHODOLOGY: Deparaffinized sections of prefer/formalin-fixed tissue or PAP/DQ stained slides are incubated with monoclonal/polyclonal antibodies/oligonucleotide probes. Localization is made via biotin free immunoperoxidase method. Appropriate controls are performed and reacted as expected. Results on target cell population are indicated in the following table: RESULTS: ANTIBODY / CLONE RESULT Block A AE1-3 (AE1/AE3/PCK26) negative CK7 (OV-TL12/30) negative Block B AE1-3 (AE1/AE3/PCK26) negative CK7 (OV-TL12/30) negative These tests were developed and their performance characteristics determined by [facility]. They may not have been cleared or approved by the U.S. Food and Drug Administration. The FDA has determined that such clearance or approval is not necessary. The above immunohistochemical/dualISH markers are ordered and reviewed by the Pathologist. INTERPRETATION: A. [place] lymph node, biopsy: One lymph node, negative for metastatic carcinoma. B. Additional sentinel lymph node, biopsy: One lymph node, negative for metastatic carcinoma. MEENU:nabor 08/28/19
--- NOTE | 2019-08-26 | AXNB_PTH ---
PATIENT: MARLY LINO LOC: [facility] [place] U#:[id number] AGE/SX: 54/F ROOM: RE08/26/[address]: Dr. Mer Camara MD : 1965 BED: DIS: 08/26/2019 SPEC #: [id number] RECD: 08/26/19 11:31 STATUS: ENEIDA TRISTEN #: [id number] PRINCE: 08/26/19 00:[address]: Mer Camara DEPT: SURGICAL PATHOLOGY RECD BY: Beena Chavarria ENTERED: 08/26/19 12:11 SP TYPE: AX NODE BX OTHR DR: Dr. Rosie Burciaga MD Tissues: A - Axillary lymph node, NOS B - Axillary lymph node, NOS C - Right breast, NOS Procedures: Frozen Section (charge) Surgery Specimen Level V HEADER OPERATION: Right breast stereotactic wire localization lumpectomy PRE-OP DIAGNOSIS: Right breast cancer, HER2 positive TISSUE SUBMITTED: A - [place] lymph node sent for FS at 1124, B - Additional sentinel lymph node sent for FS at 1130, C - Right breast lumpectomy, long suture - lateral, short suture - superior FROZEN SECTION DIAGNOSIS A. [place] lymph node, biopsy: One lymph node, negative for metastatic carcinoma. B. Additional sentinel lymph node, biopsy: One lymph node, negative for metastatic carcinoma. SJ: 08/26/19 MICROSCOPIC DIAGNOSIS A. [place] lymph node, biopsy: One lymph node, negative for metastatic carcinoma. See comment. B. Additional sentinel lymph node, biopsy: One lymph node, negative for metastatic carcinoma. See comment. C. Right breast, lumpectomy with needle localization: Negative for residual carcinoma. See cancer summary below. SJ: 08/28/19 BREAST CANCER SUMMARY: Procedure: Excision with wire-guided localization. Specimen: Type: Partial breast Specimen laterality: Right Invasive tumor: Tumor site: Not specified Tumor size: No residual invasive carcinoma. Histologic type: No residual invasive carcinoma. Histologic grade (Britany score): No residual invasive carcinoma. Please see comment. Tumor focality: not applicable Ductal carcinoma in situ: not identified Lobular carcinoma in situ: not identified Treatment effect: In the breast: no residual carcinoma after presurgical neoadjuvant chemotherapy. I In the lymph node: No lymph node metastasis. No fibrous scarring in the lymph node. Lymphvascular invasion: Not applicable Distant metastasis: No applicable Additional pathologic findings: Focal hyalinization consistent with therapy related changes. Ancillary studies: Previously performed on section of tumor ( / [id number]) ER - negative (0%) MS - negative (0%) Her2 - positive (3+) Microcalcifications: Not identified Clinical history: Please made reference to previous specimen () right breast mass, ultrasound-guided core biopsy with diagnosis of invasive ductal carcinoma, maximal length 8 mm and nuclear grade 2/3. Presurgical (neoadjuvant) therapy for this diagnosis of carcinoma. PATHOLOGIC STAGE: ypT0 N0 Mx The above summary is in compliance with [employer] (CAP) Cancer Protocols Checklist and [place] Joint Committee on Cancer (AJCC), Staging Manual, 8th Ed. COMMENT A & B. The lymph node is negative for metastatic carcinoma on multiple H & E levels and immunohisto-chemical stains for cytokeratins ([id number]). Please correlate clinically about the tumor size pre-neoadjuvant chemotherapy. The tumor histologic grade (Britany score) in previous biopsy is as follows: glandular/tubular differentiation score 3, nuclear pleomorphism score 2 and mitotic count score 1, overall grade 2 (score of 6). This case is discussed with Dr. Camara on 08/28/19 Case has been reviewed in consultation with Dr. Porter who concurs with the above diagnosis. IDC:AM MICROSCOPIC DESCRIPTION Slides are reviewed. GROSS DESCRIPTION A - Received fresh for frozen section diagnosis labeled with the patient's name is a specimen designated sentinel lymph node. The specimen consists of a piece of adipose tissue measuring 2 x 2 x 0.7 cm. One lymph node is identified measuring 1.5 cm in greatest dimension. The lymph node is bisected and submitted entirely for frozen section diagnosis in one cassette. / SJ: 08/26/19 B - Received fresh for frozen section diagnosis labeled with the patient's name is a specimen designated additional sentinel lymph node. The specimen consists of a piece of adipose tissue measuring 2 x 2 x 0.5 cm. One lymph node is identified measuring 1.5 cm in greatest dimension. The lymph node is bisected and submitted entirely for frozen section diagnosis in one cassette. / SJ: 08/26/19 C - Received fresh for OR consultation labeled with the patient's name is a specimen designated right breast lumpectomy. The specimen consists of an oriented fragment of wire-guided lumpectomy specimen measuring 4 x 3.5 x 1.5 cm and weighing 7.3 gm. The specimen is differentially inked as follows: anterior - yellow, posterior - black, superior - blue, inferior - green, medial - red and lateral - orange. Serial sections do not reveal a mass lesion. The impression of no gross lesion identified is conveyed to the surgeon intraoperatively. The specimen is serially sectioned and totally submitted in six cassettes after additional fixation. / AM:nabor 08/26/19 TC:5 CPT: 70642, 80570 x3, 00907 x2
--- NOTE | 2019-08-26 08:00 | NM_ITS ---
PROCEDURE: NUCLEAR MEDICINE Injection [place] Node - RIGHT breast(s). REASON FOR EXAM: Female, 54 years old. Right breast cancer. TECHNIQUE: [place] node localization using radionuclide methods of the RIGHT breast(s) was performed following subcutaneous administration of 1.1 mCi of of sulfur colloid Tc-99m. FINDINGS: 1.1 mCi of technetium labeled sulfur colloid was injected subcutaneously in the periareolar region in 4 equal aliquots. NM/Lymph Node Injection Only IMPRESSION: Subcutaneous injection of 1.1 mCi of technetium labeled sulfur colloid in the periareolar region for sentinel node imaging. Electronically Signed: Horacio Stallworth, at 10:13 EST , Service support ,
[2019-08-26 08:22] VITALS: BP 141/83; PULSE 97; RESP 15; TEMP 36.9; O2SAT 99; BMI 22.7
--- NOTE | 2019-08-26 09:20 | BI_ITS ---
SURGICAL BREAST SPECIMEN RADIOGRAPH CLINICAL: Document presence of tissue clip marker in biopsy specimen. FINDINGS: Specimen shows presence of tissue clip marker. Electronically Signed: Horacio Stallworth, at 12:32 EST , Service support , BI/Breast Biopsy Specimen
[2019-08-26] MEDS: Cefazolin 2 GM in 0.9% Normal Saline 100 ML IV (10:35)
[2019-08-26] MEDS: Lactated Ringers 1,000 ML 100 ML IV (10:35)
[2019-08-26] MEDS: 0.9% Normal Saline (Pres. free 10 ML Vial (10:46)
[2019-08-26] MEDS: Isosulfan Blue 1% 5 ML Vial (10:46)
--- NOTE | 2019-08-26 12:08 | PCM.OPRPT ---
Report of Operation Date of Procedure: 08/26/19 Pre-Operative Diagnosis: Right breast cancer status post neoadjuvant Post-Operative Diagnosis: Same Surgery/Procedure Performed:: Right breast needle localization lumpectomy, sentinel lymph node biopsy with Lymphazurin and nuclear tracer customer marketing manager: Padmini Gutierrez Type of Anesthesia:: General/Supplemental Anesthesiologist: Oskar Wynne Special Medications: Ancef 2 g IV x1 Specimen's removed: 1. [place] lymph nodes x2?frozens negative x2. 2. Right lumpectomy Estimated Blood Loss (mL): 15 cc Fluids Replaced: 700 cc Description of Procedure: In radiology the breast tissue was injected with TC-9 9 sulfur colloid and preoperative needle localization. 90 minutes later the patient was taken to the operating room and general anesthesia was induced. Localization studies were reviewed. 5 cc of Lymphazurin 1% blue dye was injected in the 4 quadrants periareolar along with 10 cc of normal saline. This was massaged gently for 5 minutes. The right breast and axilla were prepped and draped in usual sterile fashion. A timeout was completed verifying correct patient, procedure, site, positioning, special equipment prior to beginning procedure. Handheld gamma probe was used to identify the location of the hottest spot in the axilla. Prior to the incision, the counts were 21. The incision was made in the hot and blue node was identified. The probe was placed in contact with the node in the 10 count was 6608. 1 additional blue node was seen with 10 count of 2. The bed of the node measured 0-4 counts. No additional blue or hot nodes were detected. Both lymph nodes were negative on frozen section. By comparing localization studies with the direction and skin entry of the needle, the probable trajectory and location of the mass was visualized. A radial incision was planned in such a way as to minimize the amount of dissection to reach the mass. Flaps were raised in the location of the wire confirmed. The wire was delivered into the wound. 0 silk [id number] stay suture was placed around the wire and used for traction. Dissection was then taken down circumferentially, taking care to include the entire localization needle and wide margin of grossly normal tissue. The specimen and entire localizing wire were removed. The specimen was oriented and sent to radiology with the localization studies. Confirmation was received that the entire target lesion had been resected. Clips were placed at the base of the targeted tissue for radiation targeting. The wound was irrigated. Hemostasis was checked. The space was closed with a suture of 3-0 Vicryl interrupted. The breast and axillary wounds were closed with interrupted sutures of 3-0 Vicryl and subcuticular sutures of 4-0 Monocryl. A dressing of fluff gauze and supportive bra placed. The patient tolerated procedure well was taken to the postanesthesia care in stable condition. - Complications none
--- NOTE | 2019-08-26 12:13 | PCM.DC.GS ---
Discharge Diet: Light diet - advance as tolerated Discharge Activity: May not drive while taking narcotic pain medications. May shower in (days): 1 Lifting Restrictions: No lifting greater than 15 pounds with the right arm x1 week Additional Activity Instructions:: Wear a supportive bra for for several days including at night. Call your doctor if your incision/area has: Continuous Slow Oozing, Sudden Increased Bleeding, Increased Pain/ Swelling, Increased Redness, Foul Smelling Discharge, Swelling at the incision site Call your doctor if you observe: Fever of 101 or Higher Remove Dressing in (days):: 1 Additional Instructions: Okay to take ibuprofen 400-600 mg PO q6hr PRN along with the Percocet. Avoid Tylenol since there is already Tylenol in the Percocet. Take all pain meds with food. Percocet can cause constipation recommend taking daily stool softener (i.e. Colace/docusate) while taking the pain meds. Recommend starting some MiraLAX in 1 to 2 days if no bowel movement. If still no bowel movement the following day recommend taking magnesium citrate half the bottle and waiting 4-6 hours if still no results take the other half the bottle. Allergies/Adverse Reactions: Allergies No Known Allergies Allergy (Verified 08/26/19 08:19) Medications to take at Discharge atorvastatin 10 mg tablet 10 mg PO DAILY 02/02/19 levothyroxine 112 mcg tablet 112 mcg PO DAILY 02/02/19 Lidocaine/Prilocaine [Lidocaine-Prilocaine Cream] 1 applicatio TP DAILY PRN PRN 30 Days #1 tube 03/18/19 losartan 50 mg tablet 50 mg PO DAILY #90 tab 03/18/19 Oxycodone HCl/Acetaminophen [Percocet 5/325] 1 - 2 tab PO Q6H PRN PRN 4 Days #15 tab 08/26/19 The following prescriptions were given: Oxycodone HCl/Acetaminophen [Percocet 5/325] 1 - 2 tab PO Q6H PRN PRN 4 Days #15 tab PRN Reason: Pain Transmission Status: Received by Support Your App #30 Primary Care Physician: Rosie Burcaiga MD [Primary Care Provider] - Test Results: Test results from this visit will be discussed in further detail at your follow-up appointment, if applicable. Please Follow Up With: Mer Camara MD - After 5:00 on the weekends call [phone] with any concerns When: Call the office for follow-up appointment in 2 weeks. Proposed Discharge Date: 08/26/19
[2019-08-26 12:45] VITALS: BP 130/73; BP 141/83; PULSE 92; RESP 16; TEMP 36.8; O2SAT 95
[2019-08-26 13:00] VITALS: BP 122/64; BP 141/83; PULSE 100; RESP 16; O2SAT 97
[2019-08-26 13:15] VITALS: BP 127/66; BP 141/83; PULSE 98; RESP 16; TEMP 36.4; O2SAT 95
[2019-08-26 14:55] VITALS: BP 119/88; BP 141/83; PULSE 99; RESP 18; TEMP 36.9; O2SAT 99
== END 2019-08-26 15:27 | disposition home or self-care (01) ==
LOC: SDC 07:49 → AC 07:50
PROVIDERS: Family Provider Family Medicine; PCP Family Medicine; Referring Provider Surgery; Visit Provider Surgery
PROC: (CPT 19301; principal; 2019-08-26 10:15)
DX: C50.911 Malignant neoplasm of unspecified site of right female breast (principal); Z92.21 Personal history of antineoplastic chemotherapy; I42.8 Other cardiomyopathies; E03.9 Hypothyroidism, unspecified; Z78.0 Asymptomatic menopausal state; E78.5 Hyperlipidemia, unspecified; I10 Essential (primary) hypertension
CPT/HCPCS: 00400; 19301; 38525; 19281; 38792; 76098; 88305; 88307; 88331; 88341; 88342; A9541; J7120; A4216; J2405; J3490; Q9968

== ENCOUNTER → 2019-10-02 15:11 | Outpatient (CLI) | payer OTHER, SELFPAY ==
[2019-08-06 13:05] VITALS: BMI 23.0
--- NOTE | 2019-10-02 15:12 | ECHODONC_ITS ---
Reason For Study: PRE-CHEMO Procedure This was a 2D Doppler, Color Flow transthoracic echocardiogram. Myocardial strain analysis was performed in this exam to aid in the assessment of cardiac function. Exam performed in department. Left Ventricle Normal LV size. The estimated ejection fraction is 45 %. Stage 1 diastolic dysfunction. No regional wall motion abnormalities noted. Right Ventricle Normal RV size. Normal systolic function. Atria Normal left atrium. Normal right atrium. Mitral Valve Normal mitral valve. Mild (1+) eccentric mitral valve insufficiency. Tricuspid Valve Normal tricuspid valve. Mild tricuspid valve insufficiency. Aortic Valve Normal aortic valve. Trisinus/trileaflet aortic valve. Great Vessels Normal aortic root. The pulmonary artery is normal size. Normal inferior vena cava. Pericardium/Pleural No pericardial effusion. MMode/2D Measurements & Calculations LVIDd: 5.2 cm IVSd: 0.74 cm LAV(MOD-bp): 40.3 ml LVIDs: 4.3 cm LVPWd: 0.67 cm LAV(MOD-bp) Indexed: 23.5 ml/m2 RVDd: 3.0 cm FS: 17.1 % LAV(MOD-sp2): 41.4 ml LAV(MOD-sp4): 37.6 ml LVAd ap4: 37.9 cm2 SV(MOD-sp4): 49.5 ml SV(sp4-el): 50.5 ml EDV(MOD-sp4): 143.9 ml EDV(sp4-el): 147.1 ml LVAs ap4: 29.1 cm2 ESV(MOD-sp4): 94.4 ml ESV(sp4-el): 96.6 ml EF(MOD-sp4): 34.4 % EF(sp4-el): 34.3 % LA A4 area: 14.6 cm2 RA A4 area: 14.8 cm2 Time Measurements MV dec time: 0.21 sec Doppler Measurements & Calculations MV E max ky: 65.9 cm/sec Lat Peak E' Ky: 6.5 cm/sec Med Peak E' Ky: 5.8 cm/sec MV A max ky: 75.1 cm/sec E/E' lat: 10.2 E/E' med: 11.3 MV E/A: 0.88 Ao V2 max: 133.9 cm/sec LV V1 max: 68.9 cm/sec PA V2 max: 73.7 cm/sec Ao max P.2 mmHg LV V1 max P.9 mmHg TR max ky: 215.8 cm/sec TR max P.6 mmHg Interpretation Summary Normal LV size. The estimated ejection fraction is 45 %. Stage 1 diastolic dysfunction. The global longitudinal strain = -11.3% (abnormal). The global longitudinal strain is moderately abnormal. The global longitudinal strain = -11.3% (abnormal). Compared to prior study, there is no significant change. Ordering Physician: Wei Bravo Referring Physician: Wei Bravo Performed By: Marly Rosario RDCS
== END ==
PROVIDERS: Family Provider Family Medicine; PCP Family Medicine; Referring Provider Internal Medicine Hematology & Oncology; Visit Provider Internal Medicine Hematology & Oncology
DX: C50.911 Malignant neoplasm of unspecified site of right female breast (principal); Z79.899 Other long term (current) drug therapy
CPT/HCPCS: 93306; 93356

== ENCOUNTER → 2019-12-22 13:09 | Outpatient (CLI) | payer OTHER, SELFPAY ==
[2019-04-23 10:31] VITALS: BMI 23.2
[2019-08-06 13:05] VITALS: BMI 23.0
[2019-12-10 08:31] VITALS: BMI 23.1
--- NOTE | 2019-12-22 13:11 | ECHODONC_ITS ---
Reason For Study: CMP, ASSESS EF while on treatment Procedure This was a 2D Doppler, Color Flow transthoracic echocardiogram. Myocardial strain analysis was performed in this exam to aid in the assessment of cardiac function. Exam performed in department. Left Ventricle Normal LV size. The estimated ejection fraction is 43 %. There is mild global hypokinesis of the left ventricle. Right Ventricle Normal RV size. Normal systolic function. Atria Normal left atrium. Normal right atrium. Mitral Valve Normal mitral valve. Tricuspid Valve Normal tricuspid valve. Mild tricuspid valve insufficiency. Pulmonary artery systolic pressure is 25 mmHg. Aortic Valve Normal aortic valve. Trisinus/trileaflet aortic valve. Pulmonic Valve Normal pulmonic valve. Great Vessels Normal aortic root. The pulmonary artery is normal size. Normal inferior vena cava. Pericardium/Pleural No pericardial effusion. MMode/2D Measurements & Calculations LVIDd: 5.4 cm IVSd: 0.87 cm Ao root diam: 3.3 cm LVIDs: 4.1 cm LVPWd: 0.91 cm RVDd: 2.4 cm FS: 23.2 % LAV(MOD-bp): 45.1 ml LA A4 area: 14.0 cm2 LA dimension(2D): 2.7 cm LAV(MOD-bp) Indexed: 26.2 ml/m2 LAV(MOD-sp2): 42.3 ml LAV(MOD-sp4): 37.2 ml RA A4 area: 13.4 cm2 Doppler Measurements & Calculations MV E max ky: 54.3 cm/sec Lat Peak E' Ky: 13.2 cm/sec Med Peak E' Ky: 6.7 cm/sec MV A max ky: 76.9 cm/sec E/E' lat: 4.1 E/E' med: 8.1 MV E/A: 0.71 Ao V2 max: 124.4 cm/sec LV V1 max: 67.3 cm/sec PA V2 max: 68.4 cm/sec Ao max P.2 mmHg LV V1 max P.8 mmHg Ao V2 mean: 91.6 cm/sec Ao mean P.6 mmHg Ao V2 VTI: 22.7 cm TR max ky: 229.1 cm/sec TR max P.0 mmHg Interpretation Summary Normal LV size. The estimated ejection fraction is 43 %. Mild tricuspid valve insufficiency. There is mild global hypokinesis of the left ventricle. The global longitudinal strain = -15% (abnormal). Ordering Physician: Hortensia Sloan Referring Physician: Rosie Burciaga Performed By: Caitlin Malcolm RDCS, RVT
== END ==
PROVIDERS: PCP Family Medicine; Referring Provider Nurse Practitioner Family; Visit Provider Nurse Practitioner Family
DX: I42.8 Other cardiomyopathies (principal); C50.919 Malignant neoplasm of unspecified site of unspecified female breast
CPT/HCPCS: 93306; 93356

== ENCOUNTER → 2020-02-24 15:00 | Outpatient (CLI) | payer OTHER, SELFPAY ==
[2019-08-06 13:05] VITALS: BMI 23.0
[2020-02-11 08:35] VITALS: BMI 23.7
[2020-02-24 18:26] LABS: AST(SGOT) 19 U/L (15-37); Alanine Aminotransfer ALT/SGPT 29 U/L (13-56); Cholesterol 159 mg/dL (200); High Density Lipoprotein 79 mg/dL; T4 Total, Thyroxin 12.8 ug/dL (4.8-13.9); Thyroid Stim Hormone (TSH) 0.15 uIU/mL (0.358-3.74); Triglycerides 78 mg/dL; Very Low Density Lipoprotein 16 mg/dL (5-40)
== END ==
PROVIDERS: PCP Family Medicine; Visit Provider Family Medicine
DX: E78.5 Hyperlipidemia, unspecified (principal); E03.9 Hypothyroidism, unspecified
CPT/HCPCS: 36415; 80061; 84436; 84443; 84450; 84460

== ENCOUNTER → 2020-03-17 12:58 | Outpatient (CLI) | payer OTHER, SELFPAY ==
[2019-08-06 13:05] VITALS: BMI 23.0
[2020-03-03 09:00] VITALS: BMI 23.6
--- NOTE | 2020-03-17 12:59 | ECHOCSONC_ITS ---
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 Myocardial strain analysis was performed in this exam to aid in the assessment of cardiac function. Exam performed in department. Left Ventricle Normal LV size. The estimated ejection fraction is 37 %. Stage 1 diastolic dysfunction. There is moderate global hypokinesis of the left ventricle. Right Ventricle Normal RV size. Normal systolic function. Atria Normal left atrium. Normal right atrium. Mitral Valve Normal mitral valve. Mild (1+) eccentric mitral valve insufficiency. Tricuspid Valve Normal tricuspid valve. Aortic Valve Normal aortic valve. Trisinus/trileaflet aortic valve. Pulmonic Valve Normal pulmonic valve. Great Vessels Normal aortic root. The pulmonary artery is normal size. Normal inferior vena cava. Pericardium/Pleural No pericardial effusion. MMode/2D Measurements & Calculations LVIDd: 5.4 cm IVSd: 0.89 cm Ao root diam: 3.2 cm LVIDs: 4.3 cm LVPWd: 0.92 cm RVDd: 2.3 cm FS: 21.1 % LAV(MOD-bp): 42.4 ml LA A4 area: 15.5 cm2 LA dimension(2D): 3.3 cm LAV(MOD-bp) Indexed: 24.7 ml/m2 LAV(MOD-sp2): 42.8 ml LAV(MOD-sp4): 42.6 ml RA A4 area: 12.3 cm2 Doppler Measurements & Calculations MV E max ky: 44.6 cm/sec Lat Peak E' Ky: 7.2 cm/sec Med Peak E' Ky: 5.6 cm/sec MV A max ky: 78.6 cm/sec E/E' lat: 6.2 E/E' med: 8.0 MV E/A: 0.57 Ao V2 max: 108.6 cm/sec LV V1 max: 86.4 cm/sec PA V2 max: 58.6 cm/sec Ao max P.7 mmHg LV V1 max P.0 mmHg Interpretation Summary Normal LV size. The estimated ejection fraction is 37 %. There is moderate global hypokinesis of the left ventricle. Stage 1 diastolic dysfunction. The global longitudinal strain is moderately abnormal. The global longitudinal strain has worsened. Compared to previous study, the left ventricular systolic function has worsened.. Ordering Physician: Wei Bravo Referring Physician: Rosie Burciaga Performed By: Caitlin Malcolm RDCS, RVT
== END ==
PROVIDERS: PCP Family Medicine; Referring Provider Internal Medicine Hematology & Oncology; Visit Provider Internal Medicine Hematology & Oncology
DX: C50.911 Malignant neoplasm of unspecified site of right female breast (principal); Z79.899 Other long term (current) drug therapy
CPT/HCPCS: 93306; 93356

== ENCOUNTER → 2020-06-13 08:02 | Outpatient (CLI) | payer OTHER, SELFPAY ==
[2019-08-06 13:05] VITALS: BMI 23.0
[2020-03-24 08:59] VITALS: BMI 23.7
[2020-04-15 07:28] VITALS: BMI 23.3
--- NOTE | 2020-06-13 08:03 | ECHOD_ITS ---
Reason For Study: Post Treatment for Breast Cancer, Monitor EF Procedure This was a 2D Doppler, Color Flow transthoracic echocardiogram. Myocardial strain analysis was performed in this exam to aid in the assessment of cardiac function. Exam performed in department. Left Ventricle Normal LV size. The estimated ejection fraction is 35 %. Stage 1 diastolic dysfunction. There is moderate global hypokinesis of the left ventricle. Right Ventricle Normal RV size. Normal systolic function. Atria Normal left atrium. Normal right atrium. Hypermobile atrial septum. Bubble contrast study negative for right to left interatrial shunt. Mitral Valve Normal mitral valve. Tricuspid Valve Normal tricuspid valve. Mild eccentric tricuspid valve insufficiency. Aortic Valve Normal aortic valve. Trisinus/trileaflet aortic valve. Pulmonic Valve Normal pulmonic valve. Great Vessels Normal aortic root. The pulmonary artery is normal size. Normal inferior vena cava. Pericardium/Pleural No pericardial effusion. Medication 22 gauge I.V. with prn adaptor inserted into left arm. Performed a rapid injection of agitated mix of 9 cc saline and 1cc air to assess for atrial septal defect. MMode/2D Measurements & Calculations LVIDd: 5.1 cm IVSd: 1.0 cm Ao root diam: 3.2 cm LVIDs: 4.0 cm LVPWd: 0.87 cm LA dimension: 2.7 cm FS: 22.1 % LAV(MOD-bp): 32.2 ml LVAd ap4: 30.7 cm2 SV(MOD-sp4): 35.7 ml LAV(MOD-bp) Indexed: 18.4 ml/m2 EDV(MOD-sp4): 104.2 ml LAV(MOD-sp2): 37.0 ml EDV(sp4-el): 107.4 ml LAV(MOD-sp4): 24.4 ml LVAs ap4: 23.5 cm2 ESV(MOD-sp4): 68.5 ml ESV(sp4-el): 70.9 ml EF(MOD-sp4): 34.2 % EF(sp4-el): 34.0 % SV(sp4-el): 36.6 ml LA A4 area: 11.4 cm2 RA A4 area: 8.6 cm2 Time Measurements MV dec time: 0.17 sec Doppler Measurements & Calculations MV E max ky: 35.1 cm/sec Lat Peak E' Ky: 6.3 cm/sec Med Peak E' Ky: 6.4 cm/sec MV A max ky: 78.5 cm/sec E/E' lat: 5.6 E/E' med: 5.5 MV E/A: 0.45 Ao V2 max: 106.1 cm/sec LV V1 max: 89.1 cm/sec PA V2 max: 66.8 cm/sec Ao max P.5 mmHg LV V1 max P.2 mmHg TR max ky: 210.0 cm/sec TR max P.6 mmHg Interpretation Summary Hypermobile atrial septum. The estimated ejection fraction is 35 %. Normal LV size. There is moderate global hypokinesis of the left ventricle. Stage 1 diastolic dysfunction. The global longitudinal strain = -11.7% (abnormal). The global longitudinal strain has worsened. The global longitudinal strain is moderately abnormal. The global longitudinal strain = -11.7% (abnormal). The global longitudinal strain has worsened. Ordering Physician: Wei Bravo Referring Physician: Rosie Burciaga M.D. Performed By: Jonel Daniels RCS
== END ==
PROVIDERS: PCP Family Medicine; Referring Provider Internal Medicine Hematology & Oncology; Visit Provider Internal Medicine Hematology & Oncology
DX: C50.911 Malignant neoplasm of unspecified site of right female breast (principal); Z51.81 Encounter for therapeutic drug level monitoring; Z79.899 Other long term (current) drug therapy
CPT/HCPCS: 93306; A4216

== ENCOUNTER → 2020-06-30 13:54 | Outpatient (CLI) | payer OTHER, SELFPAY ==
[2019-08-06 13:05] VITALS: BMI 23.0
[2020-02-11 08:35] VITALS: BMI 23.7
[2020-06-17 08:48] VITALS: BMI 24.2
--- NOTE | 2020-06-30 13:54 | BI_ITS ---
MAMMOGRAPHY - BILATERAL DIAGNOSTIC REASON FOR EXAM: Female, 55 years old. Prior right lumpectomy with chemotherapy and radiation therapy. PERTINENT HISTORY: Personal history of breast cancer. Grandmother with breast cancer. TECHNIQUE: Digital bilateral breast meri (3D mammographic acquisition) in the CC and MLO projections. 2-D mediolateral oblique (MLO) and craniocaudad (CC) views of both breasts were obtained. CAD: Full Field Digital Mammography with Computer Added Detection was performed. COMPARISON: Comparison is made with prior examination dated 01/24/2019 and 08/05/2019. FINDINGS: Breast Composition: The breasts are heterogeneously dense, which may obscure small masses. There are no dominant masses or suspicious calcifications. The patient is status post excisional biopsy in the deep medial inferior aspect of the right breast with overlying skin thickening. Surgical clips are also seen in the right axillary region. No other significant abnormalities are identified. BI/DIAG MAMM W/CAD, BILAT IMPRESSION: Status post excisional breast biopsy with postoperative surgical changes in the deep inferior medial aspect of the right breast. Surgical clips are seen in the right axillary region.. One year follow-up recommended. (A) ASSESSMENT CATEGORY: BIRADS Category 2: Benign. A letter regarding these results will be sent to the patient by the facility within 30 days. Approximately 10% of breast cancers are not detected by mammography. A normal mammogram should not delay biopsy of a clinically suspicious abnormality. Electronically Signed: Horacio Stallworth, at 12:41 EDT , Service support ,
--- NOTE | 2020-06-30 15:11 | US_ITS ---
STUDY: ULTRASOUND BREAST - RIGHT REASON FOR EXAM: Female, 55 years old. Abnormal density on mammogram. TECHNIQUE: Axial and longitudinal images of the RIGHT breast were performed with a high resolution ultrasound transducer. # OF IMAGES: 17 COMPARISON: None. FINDINGS: RIGHT Breast: There is scar tissue at the lumpectomy site. There is no other abnormality in the soft tissues of the breast to correlate with the mammographic abnormality. There is no abnormal soft tissue tissue mass. There is no cyst formation. US/Breast Limited Unilateral IMPRESSION: There is no abnormality in the soft tissues of the breast to correlate with the mammographic abnormality. There is no abnormal soft tissue tissue mass. There is no cyst formation. ASSESSMENT CATEGORY: BIRADS Category 2: Benign. A letter regarding these results will be sent to the patient by the facility within 30 days. Electronically Signed: Perez Hill, at 16:09 EDT Tel , Service support ,
== END ==
PROVIDERS: PCP Family Medicine; Referring Provider Student in an Organized Health Care Education/Training Program; Visit Provider Student in an Organized Health Care Education/Training Program
DX: R92.2 Inconclusive mammogram (principal); Z85.3 Personal history of malignant neoplasm of breast
CPT/HCPCS: 76642; 77062; 77066; G0279

== ENCOUNTER → 2020-09-19 08:59 | Outpatient (CLI) | payer OTHER, SELFPAY ==
[2019-08-06 13:05] VITALS: BMI 23.0
--- NOTE | 2020-09-19 09:02 | ECHODONC_ITS ---
Reason For Study: DYSPNEA Procedure This was a 2D Doppler, Color Flow transthoracic echocardiogram. Myocardial strain analysis was performed in this exam to aid in the assessment of cardiac function. Exam performed in department. Left Ventricle Normal LV size. The estimated ejection fraction is 40 %. Moderate global left ventricular systolic dysfunction. Stage 1 diastolic dysfunction. There is moderate global hypokinesis of the left ventricle. Right Ventricle Normal RV size. Normal systolic function. Atria Normal left atrium. Normal right atrium. Hypermobile atrial septum. Mitral Valve Normal mitral valve. Tricuspid Valve Normal tricuspid valve. Mild tricuspid valve insufficiency. Pulmonary artery systolic pressure is 24 mmHg. Aortic Valve Normal aortic valve. Trisinus/trileaflet aortic valve. Pulmonic Valve Normal pulmonic valve. Great Vessels Normal aortic root. The pulmonary artery is normal size. Normal inferior vena cava. Pericardium/Pleural No pericardial effusion. MMode/2D Measurements & Calculations LVIDd: 4.9 cm IVSd: 0.82 cm Ao root diam: 3.5 cm LVIDs: 3.6 cm LVPWd: 0.83 cm RVDd: 2.9 cm FS: 27.0 % LAV(MOD-bp): 30.5 ml LA A4 area: 12.2 cm2 LA dimension(2D): 2.9 cm LAV(MOD-bp) Indexed: 17.5 ml/m2 LAV(MOD-sp2): 33.9 ml LAV(MOD-sp4): 26.5 ml RA A4 area: 13.7 cm2 Time Measurements MV dec time: 0.65 sec Doppler Measurements & Calculations MV E max michelle: 32.4 cm/sec Ao V2 max: 104.9 cm/sec LV V1 max: 76.4 cm/sec MV A max michelle: 45.4 cm/sec Ao max P.4 mmHg LV V1 max P.3 mmHg MV E/A: 0.71 PA V2 max: 67.5 cm/sec TR max michelle: 230.2 cm/sec TR max P.2 mmHg Interpretation Summary Hypermobile atrial septum. Normal LV size. The estimated ejection fraction is 40 %. Moderate global left ventricular systolic dysfunction. There is moderate global hypokinesis of the left ventricle. Stage 1 diastolic dysfunction. Pulmonary artery systolic pressure is 24 mmHg. The global longitudinal strain is moderately abnormal. The global longitudinal strain = -13.2% (abnormal). Compared to previous study, the left ventricular systolic function has improved.. The global longitudinal strain has improved. Ordering Physician: Russell Lentz Referring Physician: HUEY ANDREA Performed By: Ashlee Bowling, ALBANIACS, RVT
== END ==
PROVIDERS: PCP Family Medicine; Referring Provider Internal Medicine Cardiovascular Disease; Visit Provider Internal Medicine Cardiovascular Disease
DX: I34.0 Nonrheumatic mitral (valve) insufficiency (principal); R06.00 Dyspnea, unspecified; R06.02 Shortness of breath
CPT/HCPCS: 93306; 93356

== ENCOUNTER 2020-12-08 10:52 | Outpatient (RCR) | payer OTHER, SELFPAY ==
[2019-08-06 13:05] VITALS: BMI 23.0
[2020-10-14 07:59] VITALS: BMI 25.0
[2020-12-08] MEDS: COVID-19 VACC, MRNA(PFIZER)/PF 30 MCG/0.3 ML SYRINGE IM (08:19)
[2020-12-29] MEDS: COVID-19 VACC, MRNA(PFIZER)/PF 30 MCG/0.3 ML SYRINGE IM (08:10)
== END 2020-12-08 23:59 ==
LOC: IMMUN 10:52
PROVIDERS: PCP Family Medicine; Visit Provider Family Medicine
DX: Z23 Encounter for immunization (principal)
CPT/HCPCS: 0001A; 0002A; 91300

== ENCOUNTER → 2021-04-11 09:02 | Outpatient (CLI) | payer OTHER, SELFPAY ==
[2019-08-06 13:05] VITALS: BMI 23.0
[2021-03-28 15:04] VITALS: BMI 25.2
[2021-04-03 09:27] VITALS: BMI 25.2
--- NOTE | 2021-04-11 09:05 | ECHODONC_ITS ---
Reason For Study: DYSPNEA Procedure This was a 2D Doppler, Color Flow transthoracic echocardiogram. Myocardial strain analysis was performed in this exam to aid in the assessment of cardiac function. Exam performed in department. Left Ventricle Normal LV size. Left ventricular systolic function is lower limits of normal. The estimated ejection fraction is 50 %. There is borderline global hypokinesis of the left ventricle. Right Ventricle Normal RV size. Normal systolic function. Atria Normal left atrium. Normal right atrium. Mitral Valve Normal mitral valve. Tricuspid Valve Normal tricuspid valve. Aortic Valve Normal aortic valve. Trisinus/trileaflet aortic valve. Pulmonic Valve Normal pulmonic valve. Great Vessels Normal aortic root. The pulmonary artery is normal size. Normal inferior vena cava. Pericardium/Pleural No pericardial effusion. Medication Previously negative bubble study. MMode/2D Measurements & Calculations LVIDd: 5.2 cm IVSd: 0.83 cm Ao root diam: 2.9 cm LVIDs: 3.7 cm LVPWd: 0.77 cm RVDd: 2.6 cm FS: 28.4 % LAV(MOD-bp): 48.0 ml LA A4 area: 17.3 cm2 LA dimension(2D): 3.2 cm LAV(MOD-bp) Indexed: 27.5 ml/m2 LAV(MOD-sp2): 48.8 ml LAV(MOD-sp4): 47.4 ml RA A4 area: 13.4 cm2 Time Measurements MV dec time: 0.17 sec Doppler Measurements & Calculations MV E max ky: 53.4 cm/sec Lat Peak E' Ky: 9.9 cm/sec Med Peak E' Ky: 4.6 cm/sec MV A max ky: 63.5 cm/sec E/E' lat: 5.4 E/E' med: 11.7 MV E/A: 0.84 Ao V2 max: 117.6 cm/sec LV V1 max: 64.6 cm/sec PA V2 max: 75.9 cm/sec Ao max P.5 mmHg LV V1 max P.7 mmHg TR max ky: 235.1 cm/sec TR max P.2 mmHg ECHO/ONC Echo Complete Interpretation Summary Normal LV size. Left ventricular systolic function is lower limits of normal. The estimated ejection fraction is 50 %. The global longitudinal strain is borderline abnormal. The global longitudinal strain = -16.9% (abnormal). Compared to previous study, the left ventricular systolic function has improved.. The global longitudinal strain has improved. Ordering Physician: Russell Lentz Referring Physician: HUEY ANDREA Performed By: Ashlee Bowling, RENATO, RVT
== END ==
PROVIDERS: PCP Family Medicine; Referring Provider Internal Medicine Cardiovascular Disease; Visit Provider Internal Medicine Cardiovascular Disease
DX: I34.0 Nonrheumatic mitral (valve) insufficiency (principal)
CPT/HCPCS: 93306; 93356

== ENCOUNTER → 2021-07-04 08:40 | Outpatient (CLI) | payer OTHER, SELFPAY ==
[2019-08-06 13:05] VITALS: BMI 23.0
[2020-10-14 07:59] VITALS: BMI 25.0
--- NOTE | 2021-07-04 08:42 | BI_ITS ---
MAMMOGRAPHY - BILATERAL SCREENING REASON FOR EXAM: Female, 56 years old. Routine annual screening examination. PERTINENT HISTORY: Personal history of breast cancer. Prior right lumpectomy with chemotherapy and radiation. Grandmother with breast cancer. TECHNIQUE: Digital bilateral breast tariq (3D mammographic acquisition) in the CC and MLO projections. 2-D mediolateral oblique (MLO) and craniocaudad (CC) views of both breasts were obtained. CAD: Full Field Digital Mammography with Computer Added Detection was performed. COMPARISON: Comparison is made with prior study dated May 04 and 08/26/2019. FINDINGS: Breast Composition: The breasts are heterogeneously dense, which may obscure small masses. There are no dominant masses or suspicious calcifications. The patient is status post lumpectomy in the deep medial inferior aspect of the right breast with overlying skin thickening and postoperative changes. Surgical clips are seen in the right axilla. No other significant abnormalities are identified. There has been no significant change since the prior study. BI/SCRN MAMM (CAD)W/TARIQ BILAT IMPRESSION: Stable bilateral screening mammogram. Yearly follow-up mammogram recommended. (A) ASSESSMENT CATEGORY: BIRADS Category 2: Benign. A letter regarding these results will be sent to the patient by the facility within 30 days. Approximately 10% of breast cancers are not detected by mammography. A normal mammogram should not delay biopsy of a clinically suspicious abnormality. [id number] Electronically Signed: Horacio Stallworth MD at 9:31 EDT , Service support ,
== END ==
PROVIDERS: PCP Family Medicine; Referring Provider Student in an Organized Health Care Education/Training Program; Visit Provider Student in an Organized Health Care Education/Training Program
DX: Z12.31 Encounter for screening mammogram for malignant neoplasm of breast (principal)
CPT/HCPCS: 77063; 77067

== ENCOUNTER 2021-11-14 09:04 | Outpatient (CLI) | payer BC, SELFPAY ==
[2019-08-06 13:05] VITALS: BMI 23.0
--- NOTE | 2021-11-14 09:11 | ECHODONC_ITS ---
Version 2 Reason For Study: CHF Procedure This was a 2D Doppler, Color Flow transthoracic echocardiogram. Myocardial strain analysis was performed in this exam to aid in the assessment of cardiac function. Exam performed in department. Left Ventricle Normal LV size. The estimated ejection fraction is 47 %. Mild global left ventricular systolic dysfunction. Stage 1 diastolic dysfunction. No regional wall motion abnormalities noted. Right Ventricle Normal RV size. Normal systolic function. Atria Normal left atrium. Normal right atrium. Mitral Valve Normal mitral valve. Tricuspid Valve Normal tricuspid valve. Mild tricuspid valve insufficiency. Aortic Valve Normal aortic valve. Trisinus/trileaflet aortic valve. Pulmonic Valve Normal pulmonic valve. Great Vessels Normal aortic root. The pulmonary artery is normal size. Normal inferior vena cava. Pericardium/Pleural No pericardial effusion. MMode/2D Measurements & Calculations LVIDd: 5.0 cm IVSd: 1.0 cm LA dimension: 3.1 cm LVIDs: 3.7 cm LVPWd: 0.86 cm RVDd: 2.9 cm FS: 26.2 % LAV(MOD-bp): 38.7 ml LA A4 area: 14.1 cm2 RA A4 area: 12.4 cm2 LAV(MOD-bp) Indexed: 21.6 ml/m2 LAV(MOD-sp2): 44.0 ml LAV(MOD-sp4): 33.8 ml Time Measurements MV dec time: 0.22 sec Doppler Measurements & Calculations MV E max ky: 57.3 cm/sec Lat Peak E' Ky: 10.2 cm/sec Med Peak E' Ky: 5.7 cm/sec MV A max ky: 80.2 cm/sec E/E' lat: 5.6 E/E' med: 10.1 MV E/A: 0.71 MV V2 max: 82.4 cm/sec MV P1/2t max ky: 68.2 cm/sec Ao V2 max: 110.0 cm/sec MV max P.7 mmHg MV P1/2t: 67.5 msec Ao max P.8 mmHg MV V2 mean: 45.0 cm/sec MV dec slope: 295.5 cm/sec2 MV mean P.96 mmHg MVA(P1/2t): 3.3 cm2 MV V2 VTI: 18.5 cm LV V1 max: 71.5 cm/sec PA V2 max: 58.9 cm/sec TR max ky: 216.3 cm/sec LV V1 max P.0 mmHg TR max P.7 mmHg ECHO/ONC Echo Complete Interpretation Summary Normal LV size. The estimated ejection fraction is 47 %. Mild global left ventricular systolic dysfunction. Stage 1 diastolic dysfunction. The global longitudinal strain is borderline abnormal. Compared to previous juan dy, the left ventricular systolic function is the same.. Ordering Physician: Russell Lentz Referring Physician: Rosie Burciaga M.D. Performed By: Jonel Daniels RCS
== END 2021-11-14 23:59 | disposition home or self-care (01) ==
LOC: CVS 09:09
PROVIDERS: PCP Family Medicine; Referring Provider Internal Medicine Cardiovascular Disease; Visit Provider Internal Medicine Cardiovascular Disease
DX: I34.0 Nonrheumatic mitral (valve) insufficiency (principal)
CPT/HCPCS: 93306; 93356

== ENCOUNTER 2021-11-21 14:43 | Outpatient (CLI) | payer BC, SELFPAY ==
[2019-08-06 13:05] VITALS: BMI 23.0
[2021-11-21 18:03] LABS: AST(SGOT) 17 U/L (15-37); Alanine Aminotransfer ALT/SGPT 24 U/L (13-56); Cholesterol 132 mg/dL (200); High Density Lipoprotein 72 mg/dL; T4 Total, Thyroxin 13.9 ug/dL (4.8-13.9); Thyroid Stim Hormone (TSH) 0.08 uIU/mL (0.358-3.74); Triglycerides 67 mg/dL; Very Low Density Lipoprotein 13 mg/dL (5-40)
[2021-11-27 12:21] LABS: HPV APTIMA, High Risk Negative (Negative)
[2021-11-27 19:05] LABS: HPV Reflexed? YES, CHARGE PATIENT
== END 2021-11-21 23:59 | disposition home or self-care (01) ==
LOC: MFPLAB 14:45
PROVIDERS: PCP Family Medicine; Referring Provider Family Medicine; Visit Provider Family Medicine
DX: E78.5 Hyperlipidemia, unspecified (principal); E03.9 Hypothyroidism, unspecified; Z12.4 Encounter for screening for malignant neoplasm of cervix
CPT/HCPCS: 36415; 80061; 84436; 84443; 84450; 84460; 87624; 88175; G0145

== ENCOUNTER → 2022-01-31 | Outpatient (CLI) | payer BC, SELFPAY ==
[2019-08-06 13:05] VITALS: BMI 23.0
[2022-01-31 12:57] LABS: Thyroid Stim Hormone (TSH) 4.52 uIU/mL (0.358-3.74)
== END | disposition home or self-care (01) ==
LOC: MFPLAB 09:24
PROVIDERS: Family Medicine; PCP Family Medicine; Visit Provider Family Medicine
DX: E03.9 Hypothyroidism, unspecified (principal)
CPT/HCPCS: 36415; 84443

== ENCOUNTER → 2022-04-13 | Outpatient (CLI) | payer BC, SELFPAY ==
[2019-08-06 13:05] VITALS: BMI 23.0
[2022-04-13 12:47] LABS: Thyroid Stim Hormone (TSH) 0.16 uIU/mL (0.358-3.74)
== END | disposition home or self-care (01) ==
LOC: MFPLAB 10:22
PROVIDERS: PCP Family Medicine; Referring Provider Family Medicine; Visit Provider Family Medicine
DX: E03.9 Hypothyroidism, unspecified (principal)
CPT/HCPCS: 36415; 84443

== ENCOUNTER → 2022-05-01 | Outpatient (CLI) | payer BC, SELFPAY ==
[2019-08-06 13:05] VITALS: BMI 23.0
--- NOTE | 2022-05-01 08:02 | ECHODONC_ITS ---
Version 2 Reason For Study: DYSPNEA/SOB Procedure This was a 2D Doppler, Color Flow transthoracic echocardiogram. Myocardial strain analysis was performed in this exam to aid in the assessment of cardiac function. Exam performed in department. Left Ventricle Normal LV size. The estimated ejection fraction is 45 %. Moderate global left ventricular systolic dysfunction. Stage 1 diastolic dysfunction. There is mild to moderate global hypokinesis of the left ventricle. Right Ventricle Normal RV size. Normal systolic function. Atria Normal left atrium. Normal right atrium. Mitral Valve Normal mitral valve. Tricuspid Valve Normal tricuspid valve. Mild tricuspid valve insufficiency. Pulmonary artery systolic pressure is 26 mmHg. Aortic Valve Normal aortic valve. Trisinus/trileaflet aortic valve. Pulmonic Valve Normal pulmonic valve. Great Vessels Normal aortic root. The pulmonary artery is normal size. Normal inferior vena cava. Pericardium/Pleural No pericardial effusion. MMode/2D Measurements & Calculations LVIDd: 5.0 cm IVSd: 0.92 cm Ao root diam: 2.8 cm LVIDs: 3.6 cm LVPWd: 0.88 cm RVDd: 3.1 cm FS: 28.9 % LAV(MOD-bp): 45.3 ml LVAd ap4: 31.5 cm2 SV(MOD-sp4): 45.4 ml LAV(MOD-bp) Indexed: 25.2 ml/m2 LVLd ap4: 7.8 cm LAV(MOD-sp2): 36.9 ml EDV(MOD-sp4): 103.2 ml LAV(MOD-sp4): 41.3 ml EDV(sp4-el): 107.7 ml LVAs ap4: 21.9 cm2 LVLs ap4: 6.9 cm ESV(MOD-sp4): 57.8 ml ESV(sp4-el): 58.7 ml EF(MOD-sp4): 44.0 % EF(sp4-el): 45.5 % SV(sp4-el): 49.0 ml LA A4 area: 14.6 cm2 LA dimension(2D): 3.3 cm RA A4 area: 13.0 cm2 Time Measurements MV dec time: 0.17 sec Doppler Measurements & Calculations MV E max ky: 56.0 cm/sec Lat Peak E' Ky: 9.2 cm/sec Med Peak E' Ky: 6.9 cm/sec MV A max ky: 63.1 cm/sec E/E' lat: 6.1 E/E' med: 8.1 MV E/A: 0.89 Ao V2 max: 115.4 cm/sec LV V1 max: 70.5 cm/sec PA V2 max: 61.5 cm/sec Ao max P.3 mmHg LV V1 max P.0 mmHg TR max ky: 239.8 cm/sec TR max P.0 mmHg ECHO/ONC Echo Complete Interpretation Summary Normal LV size. The estimated ejection fraction is 45 %. Moderate global left ventricular systolic dysfunction. Stage 1 diastolic dysfunction. Pulmonary artery systolic pressure is 26 mmHg. Compared to the previous the left ventricular systolic function is about the sa me but the global longitudinal strain is worse. The global longitudinal strain is moderately abno rmal. The global longitudinal strain = -13.6% (abnormal). Ordering Physician: Russell Lentz Referring Physician: HUEY ANDREA Performed By: Marly Rosario RDCS
== END | disposition home or self-care (01) ==
PROVIDERS: PCP Family Medicine; Referring Provider Internal Medicine Cardiovascular Disease; Visit Provider Internal Medicine Cardiovascular Disease
DX: I34.0 Nonrheumatic mitral (valve) insufficiency (principal)
CPT/HCPCS: 93306; 93356

== ENCOUNTER → 2022-06-15 | Outpatient (CLI) | payer BC, SELFPAY ==
[2019-08-06 13:05] VITALS: BMI 23.0
[2022-06-15 10:35] LABS: Thyroid Stim Hormone (TSH) 0.63 uIU/mL (0.358-3.74)
== END | disposition home or self-care (01) ==
LOC: MFPLAB 09:16
PROVIDERS: PCP Family Medicine; Referring Provider Family Medicine; Visit Provider Family Medicine
DX: E03.9 Hypothyroidism, unspecified (principal)
CPT/HCPCS: 36415; 84443

== ENCOUNTER → 2022-07-06 | Outpatient (CLI) | payer BC, SELFPAY ==
[2019-08-06 13:05] VITALS: BMI 23.0
--- NOTE | 2022-07-06 08:48 | BI_ITS ---
MAMMOGRAPHY - BILATERAL SCREENING REASON FOR EXAM: Female, 57 years old. Routine annual screening examination. PERTINENT HISTORY: Personal history of breast cancer. Prior right lumpectomy with chemotherapy and radiation treatment. TECHNIQUE: Digital bilateral breast tariq (3D mammographic acquisition) in the CC and MLO projections. 2-D mediolateral oblique (MLO) and craniocaudad (CC) views of both breasts were obtained. CAD: Full Field Digital Mammography with Computer Added Detection was performed. COMPARISON: Comparison is made with prior examination dated 07/04/2021 at the rate 2020. FINDINGS: Breast Composition: The breasts are heterogeneously dense, which may obscure small masses. There are no dominant masses or suspicious calcifications. Once again, the patient status post right lumpectomy in the deep medial inferior aspect of the right breast with overlying skin thickening and postoperative scarring. Surgical clips are also seen in the right axilla No other significant abnormalities are identified. There has been no significant change since the prior study. BI/SCRN MAMM (CAD)W/TARIQ BILAT IMPRESSION: Stable bilateral screening mammogram. Yearly follow-up mammogram recommended. (A) ASSESSMENT CATEGORY: BIRADS Category 2: Benign. A letter regarding these results will be sent to the patient by the facility within 30 days. Approximately 10% of breast cancers are not detected by mammography. A normal mammogram should not delay biopsy of a clinically suspicious abnormality. [id number] Electronically Signed: Horacio Stallworth MD at 9:58 EDT ,
== END | disposition home or self-care (01) ==
LOC: OPBI 08:47
PROVIDERS: PCP Family Medicine; Referring Provider Nurse Practitioner Family; Visit Provider Nurse Practitioner Family
DX: Z12.31 Encounter for screening mammogram for malignant neoplasm of breast (principal); Z92.21 Personal history of antineoplastic chemotherapy; Z85.3 Personal history of malignant neoplasm of breast
CPT/HCPCS: 77063; 77067

== ENCOUNTER → 2022-10-30 | Outpatient (CLI) | payer OTHER, SELFPAY ==
[2019-08-06 13:05] VITALS: BMI 23.0
--- NOTE | 2022-10-30 07:59 | ECHODONC_ITS ---
Reason For Study: MR Procedure This was a 2D Doppler, Color Flow transthoracic echocardiogram. Myocardial strain analysis was performed in this exam to aid in the assessment of cardiac function. Exam performed in department. Left Ventricle Normal LV size. The estimated ejection fraction is 45 %. No regional wall motion abnormalities noted. There is mild global hypokinesis of the left ventricle. Right Ventricle Normal RV size. Normal systolic function. Atria Normal left atrium. Normal right atrium. Mitral Valve Normal mitral valve. Tricuspid Valve Normal tricuspid valve. Mild tricuspid valve insufficiency. Pulmonary artery systolic pressure is 24 mmHg. Aortic Valve Normal aortic valve. Trisinus/trileaflet aortic valve. Pulmonic Valve Normal pulmonic valve. Great Vessels Normal aortic root. The pulmonary artery is normal size. Normal inferior vena cava. Pericardium/Pleural No pericardial effusion. MMode/2D Measurements & Calculations LVIDd: 5.1 cm IVSd: 1.1 cm Ao root diam: 3.0 cm LVIDs: 3.7 cm LVPWd: 0.91 cm LA dimension: 3.1 cm RVDd: 3.3 cm FS: 27.5 % LAV(MOD-bp): 45.0 ml LA A4 area: 16.5 cm2 RA A4 area: 15.8 cm2 LAV(MOD-bp) Indexed: 25.1 ml/m2 LAV(MOD-sp2): 48.9 ml LAV(MOD-sp4): 42.4 ml Time Measurements MV dec time: 0.18 sec Doppler Measurements & Calculations MV E max ky: 55.7 cm/sec Lat Peak E' Ky: 9.0 cm/sec Med Peak E' Ky: 8.3 cm/sec MV A max ky: 55.7 cm/sec E/E' lat: 6.2 E/E' med: 6.7 MV E/A: 1.0 MV V2 max: 65.6 cm/sec MV P1/2t max ky: 59.8 cm/sec Ao V2 max: 99.0 cm/sec MV max P.7 mmHg MV P1/2t: 56.8 msec Ao max P.9 mmHg MV V2 mean: 39.6 cm/sec MV dec slope: 308.7 cm/sec2 MV mean P.73 mmHg MVA(P1/2t): 3.9 cm2 MV V2 VTI: 17.5 cm LV V1 max: 78.5 cm/sec PA V2 max: 50.5 cm/sec TR max ky: 227.4 cm/sec LV V1 max P.5 mmHg TR max P.7 mmHg LV V1 mean P.4 mmHg LV V1 mean: 56.5 cm/sec LV V1 VTI: 20.1 cm ECHO/ONC Echo Complete Interpretation Summary Normal LV size. The estimated ejection fraction is 45 %. Pulmonary artery systolic pressure is 24 mmHg. The global longitudinal strain is moderately abnormal. The global longitudinal strain = -14.9% (abnormal). The prior global longitudinal strain was -13.6 % . Compared to prev ious study, the left ventricular systolic function is the same.. Ordering Physician: Russell Lentz Referring Physician: Russell Lentz Performed By: Jonel Daniels RCS
== END | disposition home or self-care (01) ==
LOC: CVS 07:58
PROVIDERS: PCP Family Medicine; Referring Provider Internal Medicine Cardiovascular Disease; Visit Provider Internal Medicine Cardiovascular Disease
DX: I34.0 Nonrheumatic mitral (valve) insufficiency (principal)
CPT/HCPCS: 93306; 93356

== ENCOUNTER → 2022-12-13 | Outpatient (CLI) | payer OTHER, SELFPAY ==
[2019-08-06 13:05] VITALS: BMI 23.0
[2022-12-13 13:25] LABS: AST(SGOT) 15 U/L (15-37); Alanine Aminotransfer ALT/SGPT 22 U/L (13-56); Albumin, Serum 3.6 g/dL (3.2-5.0); Alkaline Phosphatase 51 U/L (45-117); Anion Gap 8 (5-15); BUN 14 mg/dL (7-18); Calcium,Total 9.1 mg/dL (8.5-10.1); Chloride 109 mmol/L (98-107); Cholesterol 158 mg/dL (200); Creatinine, Serum 0.88 mg/dL (0.55-1.02); EST Glomerular Filtration Rate 70 mL/min (>60); Est Glom Filt Rate - Afr Amer 85 mL/min (>60); Globulin 3.7 g/dL (2.2-4.2); Glucose 92 mg/dL (74-106); High Density Lipoprotein 68 mg/dL; Protein, Total 7.3 g/dL (6.4-8.2); Sodium Level 143 mmol/L (136-145); Thyroid Stim Hormone (TSH) 3.82 uIU/mL (0.358-3.74); Triglycerides 61 mg/dL; Very Low Density Lipoprotein 12 mg/dL (5-40)
== END | disposition home or self-care (01) ==
LOC: MFPLAB 09:10
PROVIDERS: PCP Family Medicine; Visit Provider Nurse Practitioner Family
DX: E78.5 Hyperlipidemia, unspecified (principal); E03.9 Hypothyroidism, unspecified
CPT/HCPCS: 36415; 80053; 80061; 84443

== ENCOUNTER → 2023-02-14 | Outpatient (CLI) | payer OTHER, SELFPAY ==
[2019-08-06 13:05] VITALS: BMI 23.0
[2023-02-14 12:59] LABS: Thyroid Stim Hormone (TSH) 0.93 uIU/mL (0.358-3.74)
== END | disposition home or self-care (01) ==
LOC: MFPLAB 09:41
PROVIDERS: PCP Family Medicine; Visit Provider Nurse Practitioner Family
DX: E03.9 Hypothyroidism, unspecified (principal)
CPT/HCPCS: 36415; 84443

== ENCOUNTER → 2023-07-11 | Outpatient (CLI) | payer OTHER, SELFPAY ==
[2019-08-06 13:05] VITALS: BMI 23.0
--- NOTE | 2023-07-11 15:45 | BI_ITS ---
MAMMOGRAPHY - BILATERAL SCREENING REASON FOR EXAM: Female, 58 years old. Routine annual screening examination. PERTINENT HISTORY: Personal history of breast cancer. Prior right lumpectomy and right breast biopsy. History of prior radiation therapy and chemotherapy. TECHNIQUE: Digital bilateral breast tariq (3D mammographic acquisition) in the CC and MLO projections. 2-D mediolateral oblique (MLO) and craniocaudad (CC) views of both breasts were obtained. CAD: Full Field Digital Mammography with Computer Added Detection was performed. COMPARISON: Comparison is made with prior study July 06, 2022 and July 04, 2021. FINDINGS: Breast Composition: The breasts are heterogeneously dense, which may obscure small masses. There are no dominant masses or suspicious calcifications. Once again, the patient is status post right lumpectomy in the deep medial inferior aspect of the right breast with overlying skin thickening and postoperative scarring. Surgical clips are seen in the right axilla. No other significant abnormalities are identified. There has been no significant change since the prior study. BI/SCRN MAMM (CAD)W/TARIQ BILAT IMPRESSION: Stable bilateral screening mammogram. Yearly follow-up mammogram recommended. (A) ASSESSMENT CATEGORY: BIRADS Category 2: Benign. A letter regarding these results will be sent to the patient by the facility within 30 days. Approximately 10% of breast cancers are not detected by mammography. A normal mammogram should not delay biopsy of a clinically suspicious abnormality. [id number] Electronically Signed: Horacio Stallworth MD at 10:35 EDT ,
== END | disposition home or self-care (01) ==
LOC: OPBI 15:44
PROVIDERS: PCP Family Medicine; Referring Provider Internal Medicine Hematology & Oncology; Visit Provider Internal Medicine Hematology & Oncology
DX: Z12.31 Encounter for screening mammogram for malignant neoplasm of breast (principal); Z85.3 Personal history of malignant neoplasm of breast
CPT/HCPCS: 77063; 77067

== ENCOUNTER → 2023-12-02 | Outpatient (CLI) | payer OTHER, SELFPAY ==
[2019-08-06 13:05] VITALS: BMI 23.0
--- NOTE | 2023-12-02 08:54 | ECHODONC_ITS ---
Reason For Study: Mitral Insufficiency, CMP Procedure This was a 2D Doppler, Color Flow transthoracic echocardiogram. Myocardial strain analysis was performed in this exam to aid in the assessment of cardiac function. Exam performed in department. Left Ventricle Normal LV size. Mild global left ventricular systolic dysfunction. The left ventricular ejection fraction is 45 %. There is mild global hypokinesis of the left ventricle. Right Ventricle Normal RV size. Normal systolic function. Atria Normal left atrium. Normal right atrium. Mitral Valve Normal mitral valve. Mild (1+) eccentric mitral valve insufficiency. Tricuspid Valve Normal tricuspid valve. Mild tricuspid valve insufficiency. Pulmonary artery systolic pressure is 20 mmHg. Pulmonic Valve Normal pulmonic valve. Great Vessels Normal aortic root. The pulmonary artery is normal size. Normal inferior vena cava. Pericardium/Pleural No pericardial effusion. MMode/2D Measurements & Calculations LVIDd: 4.8 cm IVSd: 0.93 cm Ao root diam: 2.9 cm LVIDs: 3.5 cm LVPWd: 1.0 cm RVDd: 2.8 cm FS: 28.4 % LAV(MOD-bp): 38.3 ml LVAd ap4: 29.6 cm2 LVAd ap2: 28.4 cm2 LAV(MOD-bp) Indexed: 21.1 ml/m2 LVLd ap4: 7.7 cm LVLd ap2: 8.0 cm LAV(MOD-sp2): 41.9 ml EDV(MOD-sp4): 98.3 ml EDV(MOD-sp2): 87.7 ml LAV(MOD-sp4): 32.2 ml EDV(sp4-el): 96.4 ml EDV(sp2-el): 85.9 ml LVAs ap4: 21.2 cm2 LVAs ap2: 20.1 cm2 LVLs ap4: 7.2 cm LVLs ap2: 7.1 cm ESV(MOD-sp4): 55.6 ml ESV(MOD-sp2): 50.3 ml ESV(sp4-el): 53.2 ml ESV(sp2-el): 47.9 ml EF(MOD-sp4): 43.4 % EF(MOD-sp2): 42.6 % EF(sp4-el): 44.8 % SV(MOD-sp4): 42.7 ml SV(MOD-sp2): 37.3 ml SV(sp4-el): 43.1 ml LA dimension(2D): 3.2 cm LA A4 area: 13.2 cm2 RA A4 area: 11.3 cm2 TAPSE: 2.2 cm Time Measurements MV dec time: 0.15 sec Doppler Measurements & Calculations MV E max ky: 62.5 cm/sec Lat Peak E' Ky: 10.2 cm/sec Med Peak E' Ky: 6.7 cm/sec MV A max ky: 59.9 cm/sec E/E' lat: 6.2 E/E' med: 9.3 MV E/A: 1.0 MV dec slope: 419.9 cm/sec2 Ao V2 max: 112.1 cm/sec LV V1 max: 73.1 cm/sec Ao max P.0 mmHg LV V1 max P.1 mmHg PA V2 max: 61.0 cm/sec TR max ky: 209.3 cm/sec TR max P.5 mmHg ECHO/ONC Echo Complete Interpretation Summary Normal LV size. Mild global left ventricular systolic dysfunction. The left ventricular ejection fraction is 45 %. There is mild global hypokinesis of the left ventricle. The global longitudinal strain is moderately abnormal. The global longitudinal strain = -13.6% (abnormal). Compared to previous study, the left ventricular systolic function is the same.. The prior global longitudinal strain was -14.9 % . Ordering Physician: Russell Lentz Referring Physician: Rosie Burciaga M.D. Performed By: Brittny Dickinson RDCS
== END | disposition home or self-care (01) ==
PROVIDERS: PCP Family Medicine; Referring Provider Internal Medicine Cardiovascular Disease; Visit Provider Internal Medicine Cardiovascular Disease
DX: I34.0 Nonrheumatic mitral (valve) insufficiency (principal)
CPT/HCPCS: 93306; 93356

== ENCOUNTER → 2023-12-17 | Outpatient (CLI) | payer OTHER, SELFPAY ==
[2019-08-06 13:05] VITALS: BMI 23.0
[2023-12-17 13:27] LABS: AST(SGOT) 14 U/L (15-37); Alanine Aminotransfer ALT/SGPT 21 U/L (13-56); Cholesterol 161 mg/dL (200); High Density Lipoprotein 77 mg/dL; T4 Total, Thyroxin 12.2 ug/dL (4.8-13.9); Thyroid Stim Hormone (TSH) 1.52 uIU/mL (0.358-3.74); Triglycerides 77 mg/dL; Very Low Density Lipoprotein 15 mg/dL (5-40)
== END | disposition home or self-care (01) ==
LOC: MFPLAB 11:22
PROVIDERS: PCP Family Medicine; Visit Provider Family Medicine
DX: E03.9 Hypothyroidism, unspecified (principal); E78.5 Hyperlipidemia, unspecified
CPT/HCPCS: 36415; 80061; 84436; 84443; 84450; 84460

== ENCOUNTER → 2024-07-13 | Outpatient (CLI) | payer OTHER, SELFPAY ==
[2019-08-06 13:05] VITALS: BMI 23.0
--- NOTE | 2024-07-13 09:23 | BI_ITS ---
MAMMOGRAPHY - BILATERAL SCREENING REASON FOR EXAM: Female, 59 years old. Routine annual screening examination. PERTINENT HISTORY: Personal history of breast cancer. Prior right lumpectomy. Grandmother with breast cancer. TECHNIQUE: Digital bilateral breast tariq (3D mammographic acquisition) in the CC and MLO projections. 2-D mediolateral oblique (MLO) and craniocaudad (CC) views of both breasts were obtained. CAD: Full Field Digital Mammography with Computer Added Detection was performed. COMPARISON: Comparison is made with prior study dated July 11, 2023 and July 06, 2022. FINDINGS: Breast Composition: The breasts are heterogeneously dense, which may obscure small masses. There are no dominant masses or suspicious calcifications. Surgical clips are seen in the right axilla. The patient is status post lumpectomy in the deep medial inferior aspect of the right breast. No other significant abnormalities are identified. There has been no significant change since the prior study. BI/SCRN MAMM (CAD)W/TARIQ BILAT IMPRESSION: Stable bilateral screening mammogram. Yearly follow-up mammogram recommended. (A) ASSESSMENT CATEGORY: BIRADS Category 2: Benign. A letter regarding these results will be sent to the patient by the facility within 30 days. Approximately 10% of breast cancers are not detected by mammography. A normal mammogram should not delay biopsy of a clinically suspicious abnormality. [id number] Electronically Signed: Horacio Stallworth MD at 11:21 EDT ,
== END | disposition home or self-care (01) ==
LOC: OPBI 09:23
PROVIDERS: PCP Family Medicine; Referring Provider Nurse Practitioner Family; Visit Provider Nurse Practitioner Family
DX: Z12.31 Encounter for screening mammogram for malignant neoplasm of breast (principal); Z85.3 Personal history of malignant neoplasm of breast; Z80.3 Family history of malignant neoplasm of breast
CPT/HCPCS: 77063; 77067

== ENCOUNTER → 2024-10-23 | Outpatient (CLI) | payer OTHER, SELFPAY ==
[2019-08-06 13:05] VITALS: BMI 23.0
--- NOTE | 2024-10-23 12:52 | ECHODONC_ITS ---
Reason For Study: Hx right breast CA, Chemo Procedure This was a 2D Doppler, Color Flow transthoracic echocardiogram. Myocardial strain analysis was performed in this exam to aid in the assessment of cardiac function. Exam performed in department. Left Ventricle Normal LV size. Left ventricular systolic function is normal. The left ventricular ejection fraction is 55 %. No regional wall motion abnormalities noted. Right Ventricle Normal RV size. Normal systolic function. Atria Normal left atrium. Normal right atrium. Mitral Valve Normal mitral valve. Tricuspid Valve Normal tricuspid valve. Mild tricuspid valve insufficiency. Aortic Valve Trisinus/trileaflet aortic valve. Pulmonic Valve Normal pulmonic valve. Great Vessels Normal aortic root. The pulmonary artery is normal size. Inferior vena cava collapse with respiration. Pericardium/Pleural No pericardial effusion. MMode/2D Measurements & Calculations LVIDd: 4.9 cm IVSd: 0.90 cm Ao root diam: 2.9 cm LVIDs: 3.3 cm LVPWd: 0.92 cm RVDd: 2.7 cm FS: 32.8 % _ LAV(MOD-bp): 40.4 ml LVAd ap4: 29.0 cm2 LVAd ap2: 28.5 cm2 LAV(MOD-bp) Indexed: 22.2 ml/m2 LVLd ap4: 7.9 cm LVLd ap2: 8.0 cm LAV(MOD-sp2): 47.4 ml EDV(MOD-sp4): 91.1 ml EDV(MOD- sp2): 87.9 ml LAV(MOD-sp4): 30.4 ml EDV(sp4-el): 90.6 ml EDV(sp2- el): 86.5 ml LVAs ap4: 19.4 cm2 LVAs ap2: 18.6 cm2 LVLs ap4: 7.0 cm LVLs ap2: 7.0 cm ESV(MOD-sp4): 45.6 ml ESV(MOD- sp2): 41.8 ml ESV(sp4-el): 45.3 ml ESV(sp2- el): 41.8 ml EF(MOD-sp4): 50.0 % EF(MOD- sp2): 52.4 % EF(sp4-el): 50.0 % _ SV(MOD-sp4): 45.6 ml SV(MOD-sp2): 46.1 ml SV(sp4- el): 45.3 ml SI(MOD-sp4): 25.0 ml/m2 SI(MOD-sp2): 25.3 ml/m2 _ LA A4 area: 13.1 cm2 LA dimension(2D): 3.2 cm RA A4 area: 12.9 cm2 _ TAPSE: 1.6 cm Time Measurements MV dec time: 0.24 sec Doppler Measurements & Calculations MV E max ky: 60.7 cm/sec Lat Peak E' Ky: 11.3 cm/sec Med Peak E' Ky: 5.3 cm/sec MV A max ky: 57.2 cm/sec E/E' lat: 5.4 E/E' med: 11.4 MV E/A: 1.1 _ Ao V2 max: 120.5 cm/sec LV V1 max: 78.1 cm/sec MV dec slope: 248.1 cm/sec2 Ao max P.8 mmHg LV V1 max P.4 mmHg _ PA V2 max: 69.4 cm/sec TR max ky: 218.7 cm/sec TR max P.1 mmHg ECHO/ONC Echo Complete Interpretation Summary Normal LV size. Left ventricular systolic function is normal. The left ventricular ejection fraction is 55 %. Mild tricuspid valve insufficiency. The global longitudinal strain is normal. The global longitudinal strain = -17 % (normal). Ordering Physician: Russell Lentz Referring Physician: Rosie Burciaga M.D. Performed By: Brittny Dickinson RDCS
== END | disposition home or self-care (01) ==
PROVIDERS: PCP Family Medicine; Referring Provider Internal Medicine Cardiovascular Disease; Visit Provider Internal Medicine Cardiovascular Disease
DX: I42.8 Other cardiomyopathies (principal); I10 Essential (primary) hypertension
CPT/HCPCS: 93306; 93356

== ENCOUNTER → 2024-12-21 | Outpatient (CLI) | payer OTHER, SELFPAY ==
[2019-08-06 13:05] VITALS: BMI 23.0
[2024-12-21 15:45] LABS: AST(SGOT) 15 U/L (<=31); Alanine Aminotransfer ALT/SGPT 12 U/L (<=34); Cholesterol 163 mg/dL (<=200); High Density Lipoprotein 80 mg/dL; Low Density Lipoprotein Calc. 65 mg/dL; T4 Total, Thyroxin 10.1 ug/dL (4.8-13.9); Triglycerides 91 mg/dL; Very Low Density Lipoprotein 18 mg/dL (5-40); cholesterol:hdl ratio screen 2.05
== END | disposition home or self-care (01) ==
LOC: MTLAB 12:35
PROVIDERS: PCP Family Medicine; Referring Provider Family Medicine; Visit Provider Family Medicine
DX: E03.9 Hypothyroidism, unspecified (principal); E78.5 Hyperlipidemia, unspecified
CPT/HCPCS: 36415; 80061; 84436; 84443; 84450; 84460

== ENCOUNTER → 2025-07-14 | Outpatient (CLI) | payer BC, SELFPAY ==
[2019-08-06 13:05] VITALS: BMI 23.0
[2025-01-04 11:59] VITALS: BMI 23.0
--- NOTE | 2025-07-14 08:45 | BI_ITS ---
EXAM: SCRN MAMM (CAD)W/TARIQ BILAT DATE: 07/14/2025 CLINICAL HISTORY: F, Age 60 y/o , SCREENING FOR BREAST CANCER. Personal history of breast cancer. Grandmother with breast cancer. TECHNIQUE: Procedure Code: [id number] Modality: MG Procedure: SCRN MAMM (CAD)W/TARIQ BILAT COMPARISON: Prior exam(s) dated July 13, 2024.. FINDINGS: TISSUE DENSITY: The breasts are heterogeneously dense, which may obscure small masses. Bilateral Breast Mammographic Findings: No significant masses, calcifications or other abnormalities are identified. The patient is status post lumpectomy in the deep medial inferior aspect of the right breast. Postoperative scarring is seen at that site. Surgical clips are seen in the right axilla. No suspicious masses, areas of developing architectural distortion, or suspicious calcifications. There has been no significant interval change. BI/SCRN MAMM (CAD)W/TARIQ BILAT IMPRESSION: Stable bilateral screening mammogram. OVERALL FINAL ASSESSMENT BI-RADS 2: BENIGN RECOMMENDATION: Routine annual follow-up in 1 Year Additional Recommendation none A letter with findings and recommendations will be mailed to the patient. Reading Location: [place] [id number]
== END | disposition home or self-care (01) ==
LOC: OPBI 08:33
PROVIDERS: PCP Family Medicine; Referring Provider Nurse Practitioner Family; Visit Provider Nurse Practitioner Family
DX: Z12.31 Encounter for screening mammogram for malignant neoplasm of breast (principal); Z85.3 Personal history of malignant neoplasm of breast; Z80.3 Family history of malignant neoplasm of breast
CPT/HCPCS: 77063; 77067